=== PATIENT | male | born 1975 | race Caucasian/White ===

== ENCOUNTER 2018-06-05 15:09 | Emergency (ER) | payer OTHER, MEDICAID, SELFPAY ==
[2018-06-05 15:32] VITALS: BP 129/90; PULSE 101; RESP 17; TEMP 36.7; O2SAT 96; BMI 40.2
--- NOTE | 2018-06-05 16:00 | DI.RAD.S_ITS ---
PROCEDURE: XR CHEST 1V INDICATIONS: Dyspnea TECHNIQUE: One view of the chest was acquired. COMPARISON: None. FINDINGS: Surgical changes and devices: None. Lungs and pleura: Mild increased pulmonary vascularity. No pleural effusions or pneumothorax. Mediastinum: Mediastinal contours appear normal. Heart size is normal. Bones and chest wall: No suspicious bony lesions. Overlying soft tissues appear unremarkable. IMPRESSION: Mild increased pulmonary vascularity. Dictated by: Celina Alonso M.D. on 06/05/2018 at 16:37 Approved by: Celina Alonso M.D. on 06/05/2018 at 16:37
--- NOTE | 2018-06-05 16:01 | DI.CT.S_ITS ---
PROCEDURE: CT ANGIO CHEST PE PROTOCOL INDICATIONS: dyspnea TECHNIQUE: After the administration of intravenous contrast, 2 mm thick sections acquired from the pulmonary apices to the posterior costophrenic angles. 3-dimensional maximum intensity projection (MIP) coronal and sagittal reformats were then acquired through the thorax. For radiation dose reduction, the following was used: automated exposure control, adjustment of mA and/or kV according to patient size. COMPARISON: [facility], CR, XR CHEST 1V, 06/05/2018, 16:13. FINDINGS: Image quality: Excellent. Pulmonary arteries: Pulmonary arteries are normal in size, and demonstrate no intraluminal filling defects to suggest central pulmonary embolism. Lungs and pleura: Lungs are clear. No pleural effusions or pneumothorax. Central and peripheral airways are patent. Mediastinum: Heart size is normal, without pericardial effusion. No mediastinal or hilar adenopathy. Thoracic aorta is normal in caliber and enhancement. Esophagus is normal in caliber, with minimal hiatal hernia. Bones and chest wall: No suspicious bony lesions. Ribs and thoracic spine appear intact throughout. Thyroid gland is unremarkable. No axillary or supraclavicular adenopathy. Abdomen: Visualized upper abdominal solid organs appear normal in the early arterial phase of enhancement. IMPRESSION: 1. No pulmonary embolism. Lungs are clear. Dictated by: Celina Alonso M.D. on 06/05/2018 at 17:17 Approved by: Celina Alonso M.D. on 06/05/2018 at 17:19
[2018-06-05 16:26] LABS: Add Manual Diff / Slide Review NO; Basophils Absolute Auto 200 /uL (0-100); Basophils Percent Auto 1.7 % (0-2); Eosinophils Absolute Auto 200 /uL (0-450); Eosinophils Percent Auto 2.4 % (2-4); Hematocrit 42.3 % (41-53); Hemoglobin 14.4 g/dL (13.5-17.5); Lymphocytes Absolute Auto 1800 /uL (1100-4500); Lymphocytes Percent Auto 19.6 % (25-40); Mean Corpuscular Hemoglobin 29.8 PG (26-34); Mean Corpuscular Volume 87.6 fL (80-100); Monocytes Absolute Auto 600 /uL (0-900); Monocytes Percent Auto 5.9 % (3-14); Neutrophils Absolute Auto 6600 /uL (1500-7000); Neutrophils Percent Auto 70.4 % (50-75); Platelet Count 206 X10^3/uL (150-400); Red Blood Cell Count 4.83 X10^6/uL (4.5-5.9); Red Cell Distribution Width 14.5 % (11.6-14.8); White Blood Cell Count 9.4 X10^3/uL (4.5-11.0)
--- NOTE | 2018-06-05 16:32 | ED.SOB ---
HPI - SOB/Dyspnea <PHI Lucas - Last Filed: 06/05/18 21:36> General Chief Complaint: Shortness of Breath/Dyspnea Stated Complaint: trouble breathing Time Seen by Provider: 06/05/18 15:29 Source: patient Mode of arrival: ambulatory Limitations: no limitations History of Present Illness 42-year-old male with history of type 2 diabetes COPD and coronary artery disease here for complaint of having dyspnea over the past couple of days. He is an everyday smoker. He recently just moved to this area from [place]. He states that he has had difficulties with medical insurance and therefore has not been taking his medications as prescribed over the past couple of weeks. He is unsure what medications he has with him and which ones he has not been taking. He denies any chest pain at this time. He does report having a productive cough with a whitish mucus Sputum he denies any fevers. He does state that he has worsening shortness of breath with exertion. He denies having any flu-like symptoms or cold-like symptoms. He denies any swelling to his lower extremities. He does report the also has a history of having heart failure. MD Complaint: shortness of breath Related Data Previous Rx's Medication Instructions Recorded lisinopril 5 mg PO DAILY #14 tab 06/05/18 metolazone 2.5 mg PO DAILY #14 tab 06/05/18 pantoprazole [Protonix] 20 mg PO DAILY #14 tab 06/05/18 Allergies Allergy/AdvReac Type Severity Reaction Status Date / Time No Known Drug Allergies Allergy Verified 06/05/18 15:35 Review of Systems <PHI Lucas - Last Filed: 06/05/18 21:36> Constitutional Denies chills, Denies fever(s), Denies lethargy and Denies weakness Eyes Denies change in vision, Denies eye discharge, Denies irritation and Denies loss of vision ENT Ears, Nose, Mouth, and Throat: Denies change in voice, Denies neck pain, Denies sore throat and Denies throat swelling Cardiovascular Denies chest pain, Denies irregular heart rhythm, Denies lightheadedness, Denies palpitations, Reports dyspnea and Denies orthopnea Respiratory Reports dyspnea and Denies wheezing Gastrointestinal Gastrointestinal: Denies abdominal pain, Denies change in bowel habits, Denies diarrhea, Denies nausea and Denies vomiting Musculoskeletal Denies neck pain Neurologic Denies confusion, Denies loss of vision and Denies weakness Psychiatric Denies anxiety, Denies confusion, Denies depression, Denies homicidal ideation and Denies suicidal ideation Endocrine Denies palpitations Allergic/Immunologic Denies urticaria, Denies throat swelling and Denies wheezing PFSH <PHI Lucas - Last Filed: 06/05/18 21:36> Social History Smoking Status: Current every day smoker Social History Smoking Status: Current every day smoker Exam <PHI Lucas - Last Filed: 06/05/18 21:36> Initial Vital Signs Initial Vital Signs: Vital Signs Temperature 98.0 F 06/05/18 15:32 Pulse Rate 101 H 06/05/18 15:32 Respiratory Rate 17 06/05/18 15:32 Blood Pressure 129/90 06/05/18 15:32 Pulse Oximetry 96 06/05/18 15:32 Const General: cooperative and well developed Nutritional Appearance: well nourished Orientation: alert, awake, oriented x3 and not confused [facility] Mouth: oral mucosae normal and moist mucous membranes Eyes Conjunctivae: conjunctivae normal Sclera: sclerae normal Pupils: PERRL EOM: EOM intact bilaterally Resp Effort & Inspection: normal respiratory effort, able to speak in complete sentences, no respiratory distress and no use of accessory muscles Auscultation: clear to auscultation bilaterally, no rales, no rhonchi and no wheezes Cardio Rate: regular rate Rhythm: regular rhythm Heart Sounds: no click, no gallops, no murmurs and no rubs Pulses: normal peripheral pulses Skin General: no rashes or lesions noted, No jaundice and No petechiae Neuro General: alert, oriented x3, gait normal and no focal motor deficits Speech: speech normal Extrem General: full ROM, no clubbing, cyanosis or edema, no pedal edema and no calf tenderness <Cornelia Martin DO - Last Filed: 06/06/18 08:00> Initial Vital Signs Initial Vital Signs: Vital Signs Temperature 98.0 F 06/05/18 15:32 Pulse Rate 101 H 06/05/18 15:32 Respiratory Rate 17 06/05/18 15:32 Blood Pressure 129/90 06/05/18 15:32 Pulse Oximetry 96 06/05/18 15:32 Course <PHI Lucas - Last Filed: 06/05/18 21:36> Orders Ordered: Discontinued Medications Albuterol/Ipratropium (Duoneb) 3 ml INH NOW ONE Stop: 06/05/18 17:36 Last Admin: 06/05/18 18:12 Dose: Not Given Vital Signs - 8 hr 06/05/18 15:32 06/05/18 17:00 Temperature 98.0 F Pulse Rate 101 H 98 H Respiratory Rate 17 17 Blood Pressure 129/90 Blood Pressure [Right Arm] 101/44 L Pulse Oximetry 96 97 <Cornelia Martin DO - Last Filed: 06/06/18 08:00> Orders Ordered: Discontinued Medications Albuterol/Ipratropium (Duoneb) 3 ml INH NOW ONE Stop: 06/05/18 17:36 Last Admin: 06/05/18 18:12 Dose: Not Given Vital Signs - 8 hr 06/05/18 15:32 06/05/18 17:00 Temperature 98.0 F Pulse Rate 101 H 98 H Respiratory Rate 17 17 Blood Pressure 129/90 Blood Pressure [Right Arm] 101/44 L Pulse Oximetry 96 97 MDM - SOB/Dyspnea <PHI Lucas - Last Filed: 06/05/18 21:36> Lab Data Result diagrams: 06/05/18 16:15 06/05/18 16:15 Lab Results 06/05/18 06/05/18 06/05/18 Range/Units 16:15 16:15 16:15 WBC 9.4 (4.5-11.0) X10^3/uL RBC 4.83 (4.5-5.9) X10^6/uL Hgb 14.4 (13.5-17.5) g/dL Hct 42.3 (41-53) % MCV 87.6 (80-100) fL MCH 29.8 (26-34) PG MCHC 34.0 (30-36) % RDW 14.5 (11.6-14.8) % Plt Count 206 (150-400) X10^3/uL Neut % (Auto) 70.4 (50-75) % Lymph % (Auto) 19.6 L (25-40) % [place] % (Auto) 5.9 (3-14) % Eos % (Auto) 2.4 (2-4) % Baso % (Auto) 1.7 (0-2) % Neut # (Auto) 6600 (8242-9240) /uL Lymph # (Auto) 1800 (7258-3895) /uL [place] # (Auto) 600 (0-900) /uL Eos # (Auto) 200 (0-450) /uL Baso # (Auto) 200 H (0-100) /uL Sodium 134 L (137-145) mmol/L Potassium 4.1 (3.4-5.1) mmol/L Chloride 94 L (98-107) mmol/L Carbon Dioxide 26 (22-32) mmol/L BUN 28 H (9-20) mg/dL Creatinine 1.10 (0.66-1.25) mg/dL Estimated GFR > 60.0 (>60) mL/min BUN/Creatinine Ratio 25.5 H (6-22) Glucose 362 H (70-100) mg/dL Calcium 9.1 (8.4-10.2) mg/dL Total Bilirubin 0.5 (0.2-1.3) mg/dL AST 29 (17-59) IU/L ALT 43 (21-72) IU/L Alkaline Phosphatase 46 (38-126) U/L Total Creatine Kinase 155 (55-170) U/L CK-MB (CK-2) 2.96 H (<2.37) ng/mL CK-MB (CK-2) Rel Index 1.9 (1.5-5.0) % Troponin I 0.016 (0.01-0.034) ng/mL B-Natriuretic Peptide 304 H (<100) Total Protein 7.9 (6.3-8.2) g/dL Albumin 4.4 (3.5-5.0) g/dL Globulin 3.5 (1.7-4.1) g/dL Albumin/Globulin Ratio 1.3 (1.0-2.8) Lipase 150 (23-300) U/L Urine Dip Bedside Urine Glucose 1000 mg/dl Bedside Urine Bilirubin - Negative Bedside Urine Ketone - Negative Urine Specific [place] 1.015 Bedside Urine Occult Blood - Negative Bedside Urine pH 6.5 Bedside Urine Protein +/- 15 Bedside Urine Urobilinogen - Negative Bedside Urine Nitrite - Negative Bedside Urine Leukocytes - Negative Esterase Imaging Data CT scan - chest: Radiologist's impression: [address] [address] [address] Scan Report Signed Patient: Sid Stiles [facility]#: [id number] : 1975Acct:[id number] Age/Sex: 42 / MDate of Service: 06/05/18 Loc: ED Accession Number: [id number] Procedure: CT angio chest PE protocol Ordering Provider: Bereket Bowling PROCEDURE: CT ANGIO CHEST PE PROTOCOL INDICATIONS: dyspnea TECHNIQUE: After the administration of intravenous contrast, 2 mm thick sections acquired from the pulmonary apices to the posterior costophrenic angles. 3-dimensional maximum intensity projection (MIP) coronal and sagittal reformats were then acquired through the thorax. For radiation dose reduction, the following was used: automated exposure control, adjustment of mA and/or kV according to patient size. COMPARISON: [facility], , XR CHEST 1V, 06/05/2018, 16:13. FINDINGS: Image quality: Excellent. Pulmonary arteries: Pulmonary arteries are normal in size, and demonstrate no intraluminal filling defects to suggest central pulmonary embolism. Lungs and pleura: Lungs are clear. No pleural effusions or pneumothorax. Central and peripheral airways are patent. Mediastinum: Heart size is normal, without pericardial effusion. No mediastinal or hilar adenopathy. Thoracic aorta is normal in caliber and enhancement. Esophagus is normal in caliber, with minimal hiatal hernia. Bones and chest wall: No suspicious bony lesions. Ribs and thoracic spine appear intact throughout. Thyroid gland is unremarkable. No axillary or supraclavicular adenopathy. Abdomen: Visualized upper abdominal solid organs appear normal in the early arterial phase of enhancement. IMPRESSION: 1. No pulmonary embolism. Lungs are clear. Dictated by: Celina Alonso M.D. on 06/05/2018 at 17:17 Approved by: Celina Alonso M.D. on 06/05/2018 at 17:19 Chest x-ray: Radiologist's impression: [address] [address] XRay Report Signed Patient: Sid Stiles [facility]#: [id number] : 1975Acct:[id number] Age/Sex: 42 / MDate of Service: 06/05/18 Loc: ED Accession Number: [id number] Procedure: XR chest 1V Ordering Provider: Bereket Bowling PROCEDURE: XR CHEST 1V INDICATIONS: Dyspnea TECHNIQUE: One view of the chest was acquired. COMPARISON: None. FINDINGS: Surgical changes and devices: None. Lungs and pleura: Mild increased pulmonary vascularity. No pleural effusions or pneumothorax. Mediastinum: Mediastinal contours appear normal. Heart size is normal. Bones and chest wall: No suspicious bony lesions. Overlying soft tissues appear unremarkable. IMPRESSION: Mild increased pulmonary vascularity. Dictated by: Celina Alonso M.D. on 06/05/2018 at 16:37 Approved by: Celina Alonso M.D. on 06/05/2018 at 16:37 ECG Data Interpretation: chest x-ray shows sinus rhythm no ST elevation or depression. No ectopy. Ventricular rhythm of 95. Pr interval of 140. QRS duration of 113. QTC of 408. MDM Narrative Medical decision making narrative: CT of chest was obtained was negative for any PE. Chest x-ray was obtained and was negative for any acute findings. EKG shows sinus rhythm no ST elevation or depression. No ectopy. CBC was obtained was unremarkable. Chem panel shows glucose elevated at 362. Patient states he discussed through eating prior to arrival. BNP was mildly elevated at 304. Will have patient continue taking his Lasix as prescribed. Potassium was at 4.1. Patient's vital signs were unremarkable in the emergency room. Differential of his shortness of breath is anxiet, COPD or viral illness. after relaxing his shortness of breath improved did not feel like he was short of breath anymore. Had discussion with patient as far as follow-up with primary care provider and further evaluation as may be stress test may be beneficial. He has follow-up appointment set up in the next couple days with new primary care provider. refills for 2 weeks of his lisinopril metolazone and Protonix are provided as he is out at this time. <Cornelia Martin, DO - Last Filed: 06/06/18 08:00> Lab Data Lab Results 06/05/18 06/05/18 06/05/18 Range/Units 16:15 16:15 16:15 WBC 9.4 (4.5-11.0) X10^3/uL RBC 4.83 (4.5-5.9) X10^6/uL Hgb 14.4 (13.5-17.5) g/dL Hct 42.3 (41-53) % MCV 87.6 (80-100) fL MCH 29.8 (26-34) PG MCHC 34.0 (30-36) % RDW 14.5 (11.6-14.8) % Plt Count 206 (150-400) X10^3/uL Neut % (Auto) 70.4 (50-75) % Lymph % (Auto) 19.6 L (25-40) % [place] % (Auto) 5.9 (3-14) % Eos % (Auto) 2.4 (2-4) % Baso % (Auto) 1.7 (0-2) % Neut # (Auto) 6600 (4669-2331) /uL Lymph # (Auto) 1800 (0337-8511) /uL [place] # (Auto) 600 (0-900) /uL Eos # (Auto) 200 (0-450) /uL Baso # (Auto) 200 H (0-100) /uL Sodium 134 L (137-145) mmol/L Potassium 4.1 (3.4-5.1) mmol/L Chloride 94 L (98-107) mmol/L Carbon Dioxide 26 (22-32) mmol/L BUN 28 H (9-20) mg/dL Creatinine 1.10 (0.66-1.25) mg/dL Estimated GFR > 60.0 (>60) mL/min BUN/Creatinine Ratio 25.5 H (6-22) Glucose 362 H (70-100) mg/dL Calcium 9.1 (8.4-10.2) mg/dL Total Bilirubin 0.5 (0.2-1.3) mg/dL AST 29 (17-59) IU/L ALT 43 (21-72) IU/L Alkaline Phosphatase 46 (38-126) U/L Total Creatine Kinase 155 (55-170) U/L CK-MB (CK-2) 2.96 H (<2.37) ng/mL CK-MB (CK-2) Rel Index 1.9 (1.5-5.0) % Troponin I 0.016 (0.01-0.034) ng/mL B-Natriuretic Peptide 304 H (<100) Total Protein 7.9 (6.3-8.2) g/dL Albumin 4.4 (3.5-5.0) g/dL Globulin 3.5 (1.7-4.1) g/dL Albumin/Globulin Ratio 1.3 (1.0-2.8) Lipase 150 (23-300) U/L Urine Dip Bedside Urine Glucose 1000 mg/dl Bedside Urine Bilirubin - Negative Bedside Urine Ketone - Negative Urine Specific [place] 1.015 Bedside Urine Occult Blood - Negative Bedside Urine pH 6.5 Bedside Urine Protein +/- 15 Bedside Urine Urobilinogen - Negative Bedside Urine Nitrite - Negative Bedside Urine Leukocytes - Negative Esterase ECG Data Attestation: I personally reviewed and interpreted this ECG as follows: Prior ECG tracings: not available for review Interpretation: Normal sinus rhythm rate 95 low voltage Q-waves noted in precordial leads, no T-wave inversions Discharge Plan Departure Patient Disposition: Home Clinical Impression: Mild shortness of breath Discharge Date/Time: 06/05/18 18:35 Interventions: ED Discharge Assessment Last Done: 06/05/18 18:34 Instructions: DI for Shortness of Breath Activity Restrictions/Additional Instructions: cardiac enzymes a were obtained today and were negative. BNP was mildly elevated and chest x-ray and CT of the chest were unremarkable indicating no exacerbation of COPD at this timeframe. Differential of causes for shortness of breath may be viral illness or anxiety. follow up with her primary care provider the next couple days as scheduled. Refills of lisinopril, metolazone and Protonix are provided for the next couple weeks. for any worsening symptoms return to the emergency room. Prescriptions: New metolazone 2.5 mg tablet 2.5 mg PO DAILY Qty: 14 RF: 0 lisinopril 5 mg tablet 5 mg PO DAILY Qty: 14 RF: 0 pantoprazole [Protonix] 20 mg tablet,delayed release (DR/EC) 20 mg PO DAILY Qty: 14 RF: 0 Referrals: [facility] [Provider Group] <Cornelia Martin DO - Last Filed: 06/06/18 08:00> Cosign ED Attending Filomena Attestation: I was immediately available in the department for consultation. Documentation has been reviewed. I agree with assessment and plan.
[2018-06-05 16:34] LABS: Alanine Aminotransferase 43 IU/L (21-72); Albumin 4.4 g/dL (3.5-5.0); Albumin Globulin Ratio 1.3 (1.0-2.8); Alkaline Phosphatase 46 U/L (38-126); Aspartate Aminotransferase 29 IU/L (17-59); BUN Creatinine Ratio 25.5 (6-22); Bilirubin Total 0.5 mg/dL (0.2-1.3); Blood Urea Nitrogen 28 mg/dL (9-20); Calcium 9.1 mg/dL (8.4-10.2); Carbon Dioxide 26 mmol/L (22-32); Chloride 94 mmol/L (98-107); Creatine Kinase 155 U/L (55-170); Estimated Glomerular Filt Rate > 60.0 mL/min (>60); Globulin 3.5 g/dL (1.7-4.1); Glucose 362 mg/dL (70-100); HEMOLYSIS 24 (0-50); Lipase 150 U/L (23-300); Potassium 4.1 mmol/L (3.4-5.1); Sodium 134 mmol/L (137-145); Total Protein 7.9 g/dL (6.3-8.2)
--- NOTE | 2018-06-05 16:36 | ED_ITS ---
HPI - SOB/Dyspnea <PHI Lucas - Last Filed: 06/05/18 21:36> General Chief Complaint: Shortness of Breath/Dyspnea Stated Complaint: trouble breathing Time Seen by Provider: 06/05/18 15:29 Source: patient Mode of arrival: ambulatory Limitations: no limitations History of Present Illness 42-year-old male with history of type 2 diabetes COPD and coronary artery disease here for complaint of having dyspnea over the past couple of days. He is an everyday smoker. He recently just moved to this area from [place]. He states that he has had difficulties with medical insurance and therefore has not been taking his medications as prescribed over the past couple of weeks. He is unsure what medications he has with him and which ones he has not been taking. He denies any chest pain at this time. He does report having a productive cough with a whitish mucus Sputum he denies any fevers. He does state that he has worsening shortness of breath with exertion. He denies having any flu-like symptoms or cold-like symptoms. He denies any swelling to his lower extremities. He does report the also has a history of having heart failure. MD Complaint: shortness of breath Related Data Previous Rx's Medication Instructions Recorded lisinopril 5 mg PO DAILY #14 tab 06/05/18 metolazone 2.5 mg PO DAILY #14 tab 06/05/18 pantoprazole [Protonix] 20 mg PO DAILY #14 tab 06/05/18 Allergies Allergy/AdvReac Type Severity Reaction Status Date / Time No Known Drug Allergies Allergy Verified 06/05/18 15:35 Review of Systems <PHI Lucas - Last Filed: 06/05/18 21:36> Constitutional Denies chills, Denies fever(s), Denies lethargy and Denies weakness Eyes Denies change in vision, Denies eye discharge, Denies irritation and Denies loss of vision ENT Ears, Nose, Mouth, and Throat: Denies change in voice, Denies neck pain, Denies sore throat and Denies throat swelling Cardiovascular Denies chest pain, Denies irregular heart rhythm, Denies lightheadedness, Denies palpitations, Reports dyspnea and Denies orthopnea Respiratory Reports dyspnea and Denies wheezing Gastrointestinal Gastrointestinal: Denies abdominal pain, Denies change in bowel habits, Denies diarrhea, Denies nausea and Denies vomiting Musculoskeletal Denies neck pain Neurologic Denies confusion, Denies loss of vision and Denies weakness Psychiatric Denies anxiety, Denies confusion, Denies depression, Denies homicidal ideation and Denies suicidal ideation Endocrine Denies palpitations Allergic/Immunologic Denies urticaria, Denies throat swelling and Denies wheezing PFSH <PHI Lucas - Last Filed: 06/05/18 21:36> Social History Smoking Status: Current every day smoker Social History Smoking Status: Current every day smoker Exam <PHI Lucas - Last Filed: 06/05/18 21:36> Initial Vital Signs Initial Vital Signs: Vital Signs Temperature 98.0 F 06/05/18 15:32 Pulse Rate 101 H 06/05/18 15:32 Respiratory Rate 17 06/05/18 15:32 Blood Pressure 129/90 06/05/18 15:32 Pulse Oximetry 96 06/05/18 15:32 Const General: cooperative and well developed Nutritional Appearance: well nourished Orientation: alert, awake, oriented x3 and not confused [facility] Mouth: oral mucosae normal and moist mucous membranes Eyes Conjunctivae: conjunctivae normal Sclera: sclerae normal Pupils: PERRL EOM: EOM intact bilaterally Resp Effort & Inspection: normal respiratory effort, able to speak in complete sentences, no respiratory distress and no use of accessory muscles Auscultation: clear to auscultation bilaterally, no rales, no rhonchi and no wheezes Cardio Rate: regular rate Rhythm: regular rhythm Heart Sounds: no click, no gallops, no murmurs and no rubs Pulses: normal peripheral pulses Skin General: no rashes or lesions noted, No jaundice and No petechiae Neuro General: alert, oriented x3, gait normal and no focal motor deficits Speech: speech normal Extrem General: full ROM, no clubbing, cyanosis or edema, no pedal edema and no calf tenderness <Cornelia Martin DO - Last Filed: 06/06/18 08:00> Initial Vital Signs Initial Vital Signs: Vital Signs Temperature 98.0 F 06/05/18 15:32 Pulse Rate 101 H 06/05/18 15:32 Respiratory Rate 17 06/05/18 15:32 Blood Pressure 129/90 06/05/18 15:32 Pulse Oximetry 96 06/05/18 15:32 Course <PHI Lucas - Last Filed: 06/05/18 21:36> Orders Ordered: Discontinued Medications Albuterol/Ipratropium (Duoneb) 3 ml INH NOW ONE Stop: 06/05/18 17:36 Last Admin: 06/05/18 18:12 Dose: Not Given Vital Signs - 8 hr 06/05/18 15:32 06/05/18 17:00 Temperature 98.0 F Pulse Rate 101 H 98 H Respiratory Rate 17 17 Blood Pressure 129/90 Blood Pressure [Right Arm] 101/44 L Pulse Oximetry 96 97 <Cornelia Martin DO - Last Filed: 06/06/18 08:00> Orders Ordered: Discontinued Medications Albuterol/Ipratropium (Duoneb) 3 ml INH NOW ONE Stop: 06/05/18 17:36 Last Admin: 06/05/18 18:12 Dose: Not Given Vital Signs - 8 hr 06/05/18 15:32 06/05/18 17:00 Temperature 98.0 F Pulse Rate 101 H 98 H Respiratory Rate 17 17 Blood Pressure 129/90 Blood Pressure [Right Arm] 101/44 L Pulse Oximetry 96 97 MDM - SOB/Dyspnea <PHI Lucas - Last Filed: 06/05/18 21:36> Lab Data Result diagrams: 06/05/18 16:15 06/05/18 16:15 Lab Results 06/05/18 06/05/18 06/05/18 Range/Units 16:15 16:15 16:15 WBC 9.4 (4.5-11.0) X10^3/uL RBC 4.83 (4.5-5.9) X10^6/uL Hgb 14.4 (13.5-17.5) g/dL Hct 42.3 (41-53) % MCV 87.6 (80-100) fL MCH 29.8 (26-34) PG MCHC 34.0 (30-36) % RDW 14.5 (11.6-14.8) % Plt Count 206 (150-400) X10^3/uL Neut % (Auto) 70.4 (50-75) % Lymph % (Auto) 19.6 L (25-40) % Barnes % (Auto) 5.9 (3-14) % Eos % (Auto) 2.4 (2-4) % Baso % (Auto) 1.7 (0-2) % Neut # (Auto) 6600 (8457-9016) /uL Lymph # (Auto) 1800 (7097-9156) /uL Barnes # (Auto) 600 (0-900) /uL Eos # (Auto) 200 (0-450) /uL Baso # (Auto) 200 H (0-100) /uL Sodium 134 L (137-145) mmol/L Potassium 4.1 (3.4-5.1) mmol/L Chloride 94 L (98-107) mmol/L Carbon Dioxide 26 (22-32) mmol/L BUN 28 H (9-20) mg/dL Creatinine 1.10 (0.66-1.25) mg/dL Estimated GFR > 60.0 (>60) mL/min BUN/Creatinine Ratio 25.5 H (6-22) Glucose 362 H (70-100) mg/dL Calcium 9.1 (8.4-10.2) mg/dL Total Bilirubin 0.5 (0.2-1.3) mg/dL AST 29 (17-59) IU/L ALT 43 (21-72) IU/L Alkaline Phosphatase 46 (38-126) U/L Total Creatine Kinase 155 (55-170) U/L CK-MB (CK-2) 2.96 H (<2.37) ng/mL CK-MB (CK-2) Rel Index 1.9 (1.5-5.0) % Troponin I 0.016 (0.01-0.034) ng/mL B-Natriuretic Peptide 304 H (<100) Total Protein 7.9 (6.3-8.2) g/dL Albumin 4.4 (3.5-5.0) g/dL Globulin 3.5 (1.7-4.1) g/dL Albumin/Globulin Ratio 1.3 (1.0-2.8) Lipase 150 (23-300) U/L Urine Dip Bedside Urine Glucose 1000 mg/dl Bedside Urine Bilirubin - Negative Bedside Urine Ketone - Negative Urine Specific [place] 1.015 Bedside Urine Occult Blood - Negative Bedside Urine pH 6.5 Bedside Urine Protein +/- 15 Bedside Urine Urobilinogen - Negative Bedside Urine Nitrite - Negative Bedside Urine Leukocytes - Negative Esterase Imaging Data CT scan - chest: Radiologist's impression: [address] [address] [address] Scan Report Signed Patient: Sid Stiles [facility]#: [id number] : 1975Acct:[id number] Age/Sex: 42 / MDate of Service: 06/05/18 Loc: ED Accession Number: [id number] Procedure: CT angio chest PE protocol Ordering Provider: Bereket Bowling PROCEDURE: CT ANGIO CHEST PE PROTOCOL INDICATIONS: dyspnea TECHNIQUE: After the administration of intravenous contrast, 2 mm thick sections acquired from the pulmonary apices to the posterior costophrenic angles. 3-dimensional maximum intensity projection (MIP) coronal and sagittal reformats were then acquired through the thorax. For radiation dose reduction, the following was used: automated exposure control, adjustment of mA and/or kV according to patient size. COMPARISON: [facility], , XR CHEST 1V, 06/05/2018, 16:13. FINDINGS: Image quality: Excellent. Pulmonary arteries: Pulmonary arteries are normal in size, and demonstrate no intraluminal filling defects to suggest central pulmonary embolism. Lungs and pleura: Lungs are clear. No pleural effusions or pneumothorax. Central and peripheral airways are patent. Mediastinum: Heart size is normal, without pericardial effusion. No mediastinal or hilar adenopathy. Thoracic aorta is normal in caliber and enhancement. Esophagus is normal in caliber, with minimal hiatal hernia. Bones and chest wall: No suspicious bony lesions. Ribs and thoracic spine appear intact throughout. Thyroid gland is unremarkable. No axillary or supraclavicular adenopathy. Abdomen: Visualized upper abdominal solid organs appear normal in the early arterial phase of enhancement. IMPRESSION: 1. No pulmonary embolism. Lungs are clear. Dictated by: Celina Alonso M.D. on 06/05/2018 at 17:17 Approved by: Celina Alonso M.D. on 06/05/2018 at 17:19 Chest x-ray: Radiologist's impression: [address] [address] XRay Report Signed Patient: Sid Stiles [facility]#: [id number] : 1975Acct:[id number] Age/Sex: 42 / MDate of Service: 06/05/18 Loc: ED Accession Number: [id number] Procedure: XR chest 1V Ordering Provider: Bereket Bowling PROCEDURE: XR CHEST 1V INDICATIONS: Dyspnea TECHNIQUE: One view of the chest was acquired. COMPARISON: None. FINDINGS: Surgical changes and devices: None. Lungs and pleura: Mild increased pulmonary vascularity. No pleural effusions or pneumothorax. Mediastinum: Mediastinal contours appear normal. Heart size is normal. Bones and chest wall: No suspicious bony lesions. Overlying soft tissues appear unremarkable. IMPRESSION: Mild increased pulmonary vascularity. Dictated by: Celina Alonso M.D. on 06/05/2018 at 16:37 Approved by: Celina Alonso M.D. on 06/05/2018 at 16:37 ECG Data Interpretation: chest x-ray shows sinus rhythm no ST elevation or depression. No ectopy. Ventricular rhythm of 95. Pr interval of 140. QRS duration of 113. QTC of 408. MDM Narrative Medical decision making narrative: CT of chest was obtained was negative for any PE. Chest x-ray was obtained and was negative for any acute findings. EKG shows sinus rhythm no ST elevation or depression. No ectopy. CBC was obtained was unremarkable. Chem panel shows glucose elevated at 362. Patient states he discussed through eating prior to arrival. BNP was mildly elevated at 304. Will have patient continue taking his Lasix as prescribed. Potassium was at 4.1. Patient's vital signs were unremarkable in the emergency room. D ifferential of his shortness of breath is anxiet, COPD or viral illness. after relaxing his shortness of breath improved did not feel like he was short of breath anymore. Had discussion with patient as far as follow-up with primary care provider and further evaluation as may be stress test may be beneficial. He has follow-up appointment set up in the next couple days with new primary care provider. refills for 2 weeks of his lisinopril metolazone and Protonix are provided as he is out at this time. <Cornelia Martin, - Last Filed: 06/06/18 08:00> Lab Data Lab Results 06/05/18 06/05/18 06/05/18 Range/Units 16:15 16:15 16:15 WBC 9.4 (4.5-11.0) X10^3/uL RBC 4.83 (4.5-5.9) X10^6/uL Hgb 14.4 (13.5-17.5) g/dL Hct 42.3 (41-53) % MCV 87.6 (80-100) fL MCH 29.8 (26-34) PG MCHC 34.0 (30-36) % RDW 14.5 (11.6-14.8) % Plt Count 206 (150-400) X10^3/uL Neut % (Auto) 70.4 (50-75) % Lymph % (Auto) 19.6 L (25-40) % Barnes % (Auto) 5.9 (3-14) % Eos % (Auto) 2.4 (2-4) % Baso % (Auto) 1.7 (0-2) % Neut # (Auto) 6600 (2546-9298) /uL Lymph # (Auto) 1800 (2765-8621) /uL Barnes # (Auto) 600 (0-900) /uL Eos # (Auto) 200 (0-450) /uL Baso # (Auto) 200 H (0-100) /uL Sodium 134 L (137-145) mmol/L Potassium 4.1 (3.4-5.1) mmol/L Chloride 94 L (98-107) mmol/L Carbon Dioxide 26 (22-32) mmol/L BUN 28 H (9-20) mg/dL Creatinine 1.10 (0.66-1.25) mg/dL Estimated GFR > 60.0 (>60) mL/min BUN/Creatinine Ratio 25.5 H (6-22) Glucose 362 H (70-100) mg/dL Calcium 9.1 (8.4-10.2) mg/dL Total Bilirubin 0.5 (0.2-1.3) mg/dL AST 29 (17-59) IU/L ALT 43 (21-72) IU/L Alkaline Phosphatase 46 (38-126) U/L Total Creatine Kinase 155 (55-170) U/L CK-MB (CK-2) 2.96 H (<2.37) ng/mL CK-MB (CK-2) Rel Index 1.9 (1.5-5.0) % Troponin I 0.016 (0.01-0.034) ng/mL B-Natriuretic Peptide 304 H (<100) Total Protein 7.9 (6.3-8.2) g/dL Albumin 4.4 (3.5-5.0) g/dL Globulin 3.5 (1.7-4.1) g/dL Albumin/Globulin Ratio 1.3 (1.0-2.8) Lipase 150 (23-300) U/L Urine Dip Bedside Urine Glucose 1000 mg/dl Bedside Urine Bilirubin - Negative Bedside Urine Ketone - Negative Urine Specific [place] 1.015 Bedside Urine Occult Blood - Negative Bedside Urine pH 6.5 Bedside Urine Protein +/- 15 Bedside Urine Urobilinogen - Negative Bedside Urine Nitrite - Negative Bedside Urine Leukocytes - Negative Esterase ECG Data Attestation: I personally reviewed and interpreted this ECG as follows: Prior ECG tracings: not available for review Interpretation: Normal sinus rhythm rate 95 low voltage Q-waves noted in precordial leads, no T-wave inversions Discharge Plan Departure Patient Disposition: Home Clinical Impression: Mild shortness of breath Discharge Date/Time: 06/05/18 18:35 Interventions: ED Discharge Assessment Last Done: 06/05/18 18:34 Instructions: DI for Shortness of Breath Activity Restrictions/Additional Instructions: cardiac enzymes a were obtained today and were negative. BNP was mildly elevated and chest x-ray and CT of the chest were unremarkable indicating no exacerbation of COPD at this timeframe. Differential of causes for shortness of breath may be viral illness or anxiety. follow up with her primary care provider the next couple days as scheduled. Refills of lisinopril, metolazone and Protonix are provided for the next couple weeks. for any worsening symptoms return to the emergency room. Prescriptions: New metolazone 2.5 mg tablet 2.5 mg PO DAILY Qty: 14 RF: 0 lisinopril 5 mg tablet 5 mg PO DAILY Qty: 14 RF: 0 pantoprazole [Protonix] 20 mg tablet,delayed release (DR/EC) 20 mg PO DAILY Qty: 14 RF: 0 Referrals: [facility] [Provider Group] <Cornelia Martin DO - Last Filed: 06/06/18 08:00> Cosign ED Attending Filomena Attestation: I was immediately available in the department for consultation. Documentation has been reviewed. I agree with assessment and plan.
[2018-06-05 16:46] LABS: B Type Natriuretic Peptide 304 (<100); Troponin I 0.016 ng/mL (0.01-0.034)
[2018-06-05 16:50] LABS: CKMB % Relative Index 1.9 % (1.5-5.0); Creatine Kinase MB 2.96 ng/mL (<2.37)
[2018-06-05 17:00] VITALS: BP 101/44; PULSE 98; RESP 17; O2SAT 97
== END 2018-06-05 18:35 | disposition home or self-care (01) ==
PROVIDERS: Emergency Provider Nurse Practitioner Family
DX: R06.02 Shortness of breath (principal)
CPT/HCPCS: 36591; 71045; 71275; 80053; 81003; 82550; 82553; 83690; 83880; 84484; 85025; 93005; 93010; 99282; 99285; Q9967

== ENCOUNTER → 2018-06-16 09:59 | Outpatient (CLI) | payer OTHER, MEDICAID, SELFPAY ==
[2018-06-16 11:33] LABS: Hemoglobin A1C% w Est Avg Glu 8.5 % (4.0-6.0)
[2018-06-16 11:35] LABS: Alanine Aminotransferase 46 IU/L (21-72); Albumin 4.5 g/dL (3.5-5.0); Albumin Globulin Ratio 1.4 (1.0-2.8); Alkaline Phosphatase 39 U/L (38-126); Aspartate Aminotransferase 27 IU/L (17-59); BUN Creatinine Ratio 24.5 (6-22); Bilirubin Total 0.4 mg/dL (0.2-1.3); Blood Urea Nitrogen 27 mg/dL (9-20); Calcium 9.2 mg/dL (8.4-10.2); Carbon Dioxide 32 mmol/L (22-32); Chloride 95 mmol/L (98-107); Cholesterol 166 mg/dL (140-199); Estimated Glomerular Filt Rate > 60.0 mL/min (>60); Globulin 3.3 g/dL (1.7-4.1); Glucose 173 mg/dL (70-100); HDL Cholesterol 31 mg/dL (40-60); HEMOLYSIS < 15 (0-50); LDL Cholesterol Calculated 89 mg/dL (<100); Potassium 3.8 mmol/L (3.4-5.1); Sodium 137 mmol/L (137-145); Total Protein 7.8 g/dL (6.3-8.2); Triglycerides 228 mg/dL (35-150)
== END ==
PROVIDERS: Visit Provider Internal Medicine
DX: E11.621 Type 2 diabetes mellitus with foot ulcer (principal)
CPT/HCPCS: 36415; 80053; 80061; 83036

== ENCOUNTER → 2018-07-04 08:08 | Outpatient (CLI) | payer OTHER, MEDICAID, SELFPAY ==
--- NOTE | 2018-07-04 | DI.ECHO.S_ITS ---
[facility] +---------+ [facility] +---------+ : : [address] [place] : : : : [id number] : : : : Phone: [phone] Echocardiogram Report + + :Name: DENVER ROLDAN Study Date: 07/04/2018 Height: 70 in : :[facility] Weight: 272 lb: : Gender: Male BSA: 2.4 m2 : :: 1975 Age: 42 yrs : :Reason For Study: CAD : :Ordering Physician: Shelton Smith : :[place] Performed By: Carol Crandall : :Referring: MIGUELINA MCGILL : + + Interpretation Summary Technically difficult study. Moderate-severely dilated left ventricle with ejection fraction 25-30%. The anterior wall, apical 1/2 of septum, apex, apical 1/2 of lateral wall and apical 1/3 of inferior wall are akinetic. Diastolic parameters suggest a restrictive filling pattern consistent with probable significantly elevated filling pressures. Moderately dilated left atrium. The aortic valve is mildly calcified. Mild to moderate aortic regurgitation. Mild tricuspid regurgitation. The right ventricular systolic pressure is estimated to be at least 37 mmHg based on an estimated right atrial pressure of 3 mm Hg. Procedure: A two-dimensional transthoracic echocardiogram with color flow and Doppler was performed. The study quality was technically difficult. A contrast injection of Definity was performed to improve assessment of LV function. The patient was in normal sinus rhythm during the exam. Left Ventricle: The left ventricle is moderate-severely dilated. There is normal left ventricular wall thickness. The ejection fraction is estimated to be 25-30%. There is apical septal wall akinesis. There is apical akinesis. There is apical inferior wall akinesis. There is anterior wall akinesis. Diastolic parameters suggest a restrictive filling pattern consistent with probable significantly elevated filling pressures. Right Ventricle: The right ventricle is normal in size and function. Atria: The left atrium is moderately dilated. Right atrial size is normal. Mitral Valve: The mitral valve is normal in structure and function. There is no mitral regurgitation noted. Aortic Valve: The aortic valve is mildly calcified. Leaflet mobility is mildly reduced. There is mild to moderate aortic regurgitation. Tricuspid Valve: The tricuspid valve is normal in structure and function. There is mild tricuspid regurgitation. The right ventricular systolic pressure is estimated to be at least 37 mmHg based on an estimated right atrial pressure of 3 mm Hg. Pulmonic Valve: The pulmonic valve is not well visualized. Great Vessels: The aortic root is normal size. The ascending aorta is normal in size. The aortic arch is normal in size. The IVC is of normal diameter and collapses greater than 50% with a sniff. This suggests a low right atrial pressure of 3 mm Hg. MMode/2D Measurements & Calculations LVIDd: 6.8 cm LVOT diam: 2.3 cm LVIDs: 5.6 cm Ao root diam: 3.1 cm FS: 16.6 % Aortic Jxn: 2.5 cm EPSS: 2.2 cm asc Aorta Diam: 3.2 cm IVSd: 0.86 cm Ao Arch Diam (Prox Trans): 2.6 cm LVPWd: 0.81 cm LV hammond. diameter/BSA (cm/m^2): 2.8 LV sys. diameter/BSA (cm/m^2): 2.4 LA dimension: 4.6 cm RA long axis: 5.0 cm LA A2 area: 26.1 cm2 RA area: 20.6 cm2 LA A4 area: 23.7 cm2 RA vol: 72.1 ml LA length (vol): 5.4 cm RA : 30.3 ml/m2 LA vol: 97.1 ml IVC diam: 1.6 cm LA vol index: 40.8 ml/m2 RVDd major: 6.7 cm RVD1 (basal): 3.6 cm RVD2 (mid): 3.5 cm Doppler Measurements & Calculations Ao V2 max: 153.1 cm/sec AI P1/2t: 256.8 msec Ao V2 mean: 105.0 cm/sec AI dec slope: 438.6 cm/sec2 Ao max P.4 mmHg Ao mean P.2 mmHg Ao V2 VTI: 31.4 cm MV E max kavon: 136.4 cm/sec TR max kavon: 292.0 cm/sec MV A max kavon: 27.0 cm/sec TR max P.1 mmHg MV E/A: 5.0 PA V2 max: 60.5 cm/sec Med Peak E' Kavon: 1.7 cm/sec PA V2 mean: 41.7 cm/sec E/E' med: 81.0 PA mean P.80 mmHg Lat Peak E' Kavon: 5.0 cm/sec PA Accel Time: 0.15 sec E/E' lat: 27.4 E/e' average: 54.2 MV dec time: 0.09 sec MV P1/2t: 28.8 msec MV P1/2t max kavon: 136.4 cm/sec MVA(P1/2t): 7.6 cm2 Electronically signed by: Felix Zapata on Reading Physician:07/04/2018 11:56 AM
== END ==
PROVIDERS: PCP Internal Medicine; Referring Provider Internal Medicine Cardiovascular Disease; Visit Provider Internal Medicine
DX: I08.2 Rheumatic disorders of both aortic and tricuspid valves (principal); I25.10 Atherosclerotic heart disease of native coronary artery without angina pectoris; I50.20 Unspecified systolic (congestive) heart failure
CPT/HCPCS: 93306; Q9957

== ENCOUNTER 2018-07-16 09:24 | Emergency (ER) | payer OTHER, MEDICAID, SELFPAY ==
[2018-07-16 09:36] VITALS: BP 114/68; PULSE 87; RESP 22; TEMP 36.8; O2SAT 100; BMI 39.8
--- NOTE | 2018-07-16 09:50 | DI.RAD.S_ITS ---
PROCEDURE: XR CHEST 1V INDICATIONS: sob, hx of cardiomyopathy TECHNIQUE: One view of the chest was acquired. COMPARISON: [facility], CR, XR CHEST 1V, 06/05/2018, 16:13. FINDINGS: Surgical changes and devices: None. Lungs and pleura: No acute consolidation. Scattered subsegmental atelectasis and/or scarring. No pleural effusions or pneumothorax. Mediastinum: Mediastinal contours appear normal. Heart size is normal. Bones and chest wall: No suspicious bony lesions. Overlying soft tissues appear unremarkable. IMPRESSION: No acute consolidation. Scattered subsegmental atelectasis and/or scarring Dictated by: Carlos Lang M.D. on 07/16/2018 at 10:54 Approved by: Carlos Lang M.D. on 07/16/2018 at 10:55
[2018-07-16 09:55] LABS: HEMOLYSIS < 15 (0-50)
[2018-07-16 09:56] LABS: INR 1.1 (0.9-1.3); Prothrombin Time 12.2 SECONDS (10.1-12.7)
[2018-07-16 09:58] LABS: PTT Partial Thromboplastin Tim 33 SECONDS (26.4-36.2)
--- NOTE | 2018-07-16 10:00 | ED.SOB ---
HPI - SOB/Dyspnea General Chief Complaint: Shortness of Breath/Dyspnea Stated Complaint: sob, heart failure Time Seen by Provider: 07/16/18 09:32 Source: patient and old records reviewed Mode of arrival: ambulatory Limitations: no limitations History of Present Illness This is a 42-year-old male comes to the emergency department with complaint of shortness of breath. Patient states he has been increasingly short of breath over the last 2 days. He was hoping that would resolve. Patient has had cough, he had coughed up some phlegm. He states lying flat makes him very short of breath and difficult for him to get air. He states he has not noticed any swelling in his extremities but he typically does not have any. Patient has known cardiomyopathy, he has a history coronary artery disease, his stent occluded he had [place], stroke and most recent echo shows an EF 25-30% with dilated left ventricle and anterior wall, apical half of the septum, apex, apical 1/2 lateral wall and apical 1/3 of inferior wall akinetic. Patient states he saw Dr. Galeano with Cardiology and he is scheduled to have an AICD placed at the end of the month. He states that he has not had any recent food changes read anything that he should be eating, Dr. galloway his primary did stop his mental as own and potassium about 1-2 weeks ago because electrolytes abnormalities and dehydration. He has felt congested in his chest, he has had 30 yellow productive sputum. He denies any fevers. States he does sometimes have some left shoulder discomfort in the deltoid region, he states that he tends to notice it when he is walking. 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 He quit smoking 2 months ago, he does not use any alcohol or illicit drugs including cocaine but states that he used them pretty extensively in the past which likely was a major factor in developing his cardiac disease. Related Data Previous Rx's Medication Instructions Recorded lisinopril 5 mg PO DAILY #14 tab 06/05/18 metolazone 2.5 mg PO DAILY #14 tab 06/05/18 pantoprazole [Protonix] 20 mg PO DAILY #14 tab 06/05/18 furosemide [Lasix] See Rx Instructions .ROUTE 07/16/18 .COMPLEX #10 tab Allergies Allergy/AdvReac Type Severity Reaction Status Date / Time No Known Drug Allergies Allergy Verified 06/05/18 15:35 Review of Systems Review of Systems ROS Unobtainable: All systems reviewed & are unremarkable except as noted in HPI and below Constitutional Reports chills (maybe perpatient), Denies fever(s), Denies lethargy and Denies weakness ENT Ears, Nose, Mouth, and Throat: Denies nasal congestion Cardiovascular Denies chest pain, Denies chest pain at rest, Denies diaphoresis, Denies syncope, Denies edema, Denies irregular heart rhythm, Denies lightheadedness, Reports radiating jaw, neck or arm pain (left deltoid), Denies palpitations, Reports dyspnea on exertion and Reports orthopnea Respiratory Reports change in phlegm color, Reports chest congestion, Reports cough, Denies excessive phlegm production, Reports dyspnea on exertion, Denies stridor and Denies wheezing Gastrointestinal Gastrointestinal: Denies abdominal pain, Denies change in bowel habits, Denies constipation, Denies diarrhea, Denies nausea and Denies vomiting Genitourinary Denies hematuria, Denies urinary frequency and Denies urinary urgency Integumentary/Breasts Denies rash Neurologic Denies syncope and Denies weakness Endocrine Denies palpitations Allergic/Immunologic Denies wheezing [facility] Medical History (Updated 07/16/18 @ 11:59 by Valerie Jay DO) COPD (chronic obstructive pulmonary disease) (Acute) CVA (cerebral vascular accident) (Acute) Congestive heart failure (CHF) (Acute) Coronary artery disease (Acute) Type 2 diabetes mellitus (Acute) Surgical History (Updated 07/16/18 @ 09:44 by Sabrina Stokes RN) Stented coronary artery (Acute) Social History (Updated 07/16/18 @ 10:04 by Valerie Jay DO) Smoking Status: Former smoker alcohol intake: former substance use type: former substance user Social History (Updated 07/16/18 @ 10:04 by Valerie Jay DO) Smoking Status: Former smoker alcohol intake: former substance use type: former substance user Exam Narrative Exam Narrative: GENERAL: Alert and oriented x three, obese, mild distress. HEENT: Head normocephalic, atraumatic, EOMI, pupils reactive, face symmetric, moist mucous membranes NECK: Supple, full range of motion CARDIOVASCULAR: Regular rate and rhythm without murmurs, rubs or gallops. No edema bilateral lower extremities. RESPIRATORY: Breath sounds equal bilaterally, very mild wheeze bilateral upper and lower lungs no crackles, no rales. No tachypnea left ambulating. Speaks in full sentences. ABDOMEN: Soft, nontender. Normoactive bowel sounds all 4 quadrants. No guarding or rebound, rigidity, no mass : No CVA tenderness EXTREMITIES: Normal range of motion, no clubbing or edema. Neurovascularly intact NEUROLOGICAL: Cranial nerves II through XII grossly intact. Moving all extremities SKIN: Warm, dry, no petechiae, no rashes or lesions. Initial Vital Signs Initial Vital Signs: Vital Signs Temperature 98.3 F 07/16/18 09:36 Pulse Rate 87 07/16/18 09:36 Respiratory Rate 22 07/16/18 09:36 Blood Pressure 114/68 07/16/18 09:36 Pulse Oximetry 100 07/16/18 09:36 Course Orders Ordered: ED Orders 07/16/18 09:31 EKG-12 Lead Routine 07/16/18 09:40 B Type Natriuretic Peptide Stat Basic Metabolic Panel Stat Complete Blood Count AUTO DIFF Stat Partial Thromboplastin Time Stat Prothrombin Time INR Stat Troponin & CK Cardiac Panel Stat 07/16/18 09:50 XR chest 1V Stat Discontinued Medications Albuterol/Ipratropium (Duoneb) 3 ml INH NOW ONE Stop: 07/16/18 10:00 Last Admin: 07/16/18 10:06 Dose: 3 ml Aspirin (Aspirin Ec) 243 mg PO NOW ONE Stop: 07/16/18 10:00 Last Admin: 07/16/18 10:37 Dose: 243 mg Furosemide (Lasix) 60 mg IV NOW ONE Stop: 07/16/18 10:01 Last Admin: 07/16/18 10:36 Dose: 60 mg Vital Signs - 8 hr 07/16/18 11:00 07/16/18 11:30 07/16/18 12:00 Pulse Rate 70 78 91 H Respiratory Rate 14 19 Blood Pressure [Right Arm] 131/78 114/76 130/73 Pulse Oximetry 97 99 96 MDM - SOB/Dyspnea Lab Data Attestation: I reviewed the patient's lab results. Result diagrams: 07/16/18 09:40 07/16/18 09:40 Lab Results 07/16/18 07/16/18 07/16/18 Range/Units 09:40 09:40 09:40 WBC 8.8 (4.5-11.0) X10^3/uL RBC 4.46 L (4.5-5.9) X10^6/uL Hgb 12.9 L (13.5-17.5) g/dL Hct 39.0 L (41-53) % MCV 87.5 (80-100) fL MCH 28.8 (26-34) PG MCHC 32.9 (30-36) % RDW 14.9 H (11.6-14.8) % Plt Count 221 (150-400) X10^3/uL Neut % (Auto) 72.4 (50-75) % Lymph % (Auto) 19.8 L (25-40) % [place] % (Auto) 5.3 (3-14) % Eos % (Auto) 1.2 L (2-4) % Baso % (Auto) 1.3 (0-2) % Neut # (Auto) 6300 (4779-3737) /uL Lymph # (Auto) 1700 (6122-9830) /uL [place] # (Auto) 500 (0-900) /uL Eos # (Auto) 100 (0-450) /uL Baso # (Auto) 100 (0-100) /uL PT 12.2 (10.1-12.7) SECONDS INR 1.1 (0.9-1.3) APTT 33 (26.4-36.2) SECONDS Sodium 138 (137-145) mmol/L Potassium 4.0 (3.4-5.1) mmol/L Chloride 100 (98-107) mmol/L Carbon Dioxide 26 (22-32) mmol/L BUN 24 H (9-20) mg/dL Creatinine 1.10 (0.66-1.25) mg/dL Estimated GFR > 60.0 (>60) mL/min BUN/Creatinine Ratio 21.8 (6-22) Glucose 169 H (70-100) mg/dL Calcium 9.2 (8.4-10.2) mg/dL Total Creatine Kinase 169 (55-170) U/L CK-MB (CK-2) 3.02 H (<2.37) ng/mL CK-MB (CK-2) Rel Index 1.8 (1.5-5.0) % Troponin I 0.016 (0.01-0.034) ng/mL B-Natriuretic Peptide 531 H (<100) Imaging Data Chest x-ray: Radiologist's impression: [place] [id number] [place] [id number] XRay Report Signed Patient: Sid Stiles DMR#: [id number] : 1975Acct:[id number] Age/Sex: 42 / MDate of Service: 07/16/18 Loc: ED Accession Number: [id number] Procedure: XR chest 1V Ordering Provider: Valerie Jay D.O. PROCEDURE: XR CHEST 1V INDICATIONS: sob, hx of cardiomyopathy TECHNIQUE: One view of the chest was acquired. COMPARISON: [facility], CR, XR CHEST 1V, 06/05/2018, 16:13. FINDINGS: Surgical changes and devices: None. Lungs and pleura: No acute consolidation. Scattered subsegmental atelectasis and/or scarring. No pleural effusions or pneumothorax. Mediastinum: Mediastinal contours appear normal. Heart size is normal. Bones and chest wall: No suspicious bony lesions. Overlying soft tissues appear unremarkable. IMPRESSION: No acute consolidation. Scattered subsegmental atelectasis and/or scarring Dictated by: Carlos Lang M.D. on 07/16/2018 at 10:54 Approved by: Carlos Lang M.D. on 07/16/2018 at 10:55 ECG Data Attestation: I personally reviewed and interpreted this ECG as follows: Interpretation: Sinus rhythm ventricular rate 82, P are 174, QRS of 123, QTC of [address] elevation or depression appreciated. Q-waves in 1 aVL fruit well as V4 5 and 6. Patient's EKG appears similar to prior from 06/05/2018. MDM Narrative Medical decision making narrative: The patient having increasing shortness of breath, he had some mild wheeze bisects suspect this is more congestive heart failure especially with his low EF and multiple areas of akinetic movement on his recent echo from 07/04/2018. Cardiac enzymes, BNP, chest x-ray pending. Once we have these back will discuss with his primary care. Patient is on aspirin and Brilinta. Lasix 60 mg was given. Patient was also given a neb for slight wheeze. He does not have a formal diagnosis of COPD but states they were talking about testing him and patient states that he did smoke extensively for about 30 years. Patient has had about 1 L of urine out, states his shortness breath is improving. I spoke with Dr. Vasquez from Cardiology, he recommends increasing his Lasix to 40 mg in the morning continue 20 mg in the evening. Have patient follow up in the next week with the mid-level and continue his other medications. I discussed with patient he feels comfortable with this plan. He is feeling much better at this time. Discharge Plan Departure Patient Disposition: Home Clinical Impression: CHF exacerbation Discharge Date/Time: 07/16/18 12:25 Interventions: ED Discharge Assessment Last Done: 07/16/18 12:25 Instructions: DI for Heart Failure Activity Restrictions/Additional Instructions: Follow-up with your cardiology team, call Wednesday for an appointment. Increased your Lasix to 40 mg in the morning, continue with 20 mg in the evening. Continue your other home meds as prescribed. Return to the emergency department for worsening symptoms, increasing shortness of breath, new chest or arm pain, passing out, new abdominal pain, swelling of her extremities or other new or concerning symptoms. Prescriptions: New furosemide [Lasix] 20 mg tablet See Rx Instructions .ROUTE .COMPLEX Qty: 10 RF: 0 No Action metolazone 2.5 mg tablet 2.5 mg PO DAILY Qty: 14 RF: 0 lisinopril 5 mg tablet 5 mg PO DAILY Qty: 14 RF: 0 pantoprazole [Protonix] 20 mg tablet,delayed release (DR/EC) 20 mg PO DAILY Qty: 14 RF: 0 Referrals: Khadar Galloway MD [Primary Care Provider] - Shelton Galeano MD [Physician] -
[2018-07-16 10:01] LABS: BUN Creatinine Ratio 21.8 (6-22); Blood Urea Nitrogen 24 mg/dL (9-20); Calcium 9.2 mg/dL (8.4-10.2); Carbon Dioxide 26 mmol/L (22-32); Chloride 100 mmol/L (98-107); Creatine Kinase 169 U/L (55-170); Estimated Glomerular Filt Rate > 60.0 mL/min (>60); Glucose 169 mg/dL (70-100); Sodium 138 mmol/L (137-145)
[2018-07-16] MEDS: ALBUTEROL/IPRATROPIUM 3 ML AMPUL INH (10:06)
[2018-07-16 10:08] VITALS: PULSE 89; RESP 24; O2SAT 96
--- NOTE | 2018-07-16 10:08 | ED_ITS ---
HPI - SOB/Dyspnea General Chief Complaint: Shortness of Breath/Dyspnea Stated Complaint: sob, heart failure Time Seen by Provider: 07/16/18 09:32 Source: patient and old records reviewed Mode of arrival: ambulatory Limitations: no limitations History of Present Illness This is a 42-year-old male comes to the emergency department with complaint of shortness of breath. Patient states he has been increasingly short of breath over the last 2 days. He was hoping that would resolve. Patient has had cough, he had coughed up some phlegm. He states lying flat makes him very short of breath and difficult for him to get air. He states he has not noticed any swelling in his extremities but he typically does not have any. Patient has known cardiomyopathy, he has a history coronary artery disease, his stent occluded he had [place], stroke and most recent echo shows an EF 25-30% with dilated left ventricle and anterior wall, apical half of the septum, apex, apical 1/2 lateral wall and apical 1/3 of inferior wall akinetic. Patient states he saw Dr. Galeano with Cardiology and he is scheduled to have an AICD placed at the end of the month. He states that he has not had any recent food changes read anything that he should be eating, Dr. galloway his primary did stop his mental as own and potassium about 1-2 weeks ago because electrolytes abnormalities and dehydration. He has felt congested in his chest, he has had 30 yellow productive sputum. He denies any fevers. States he does sometimes have some left shoulder discomfort in the deltoid region, he states that he tends to notice it when he is walking. 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 He quit smoking 2 months ago, he does not use any alcohol or illicit drugs including cocaine but states that he used them pretty extensively in the past which likely was a major factor in developing his cardiac disease. Related Data Previous Rx's Medication Instructions Recorded lisinopril 5 mg PO DAILY #14 tab 06/05/18 metolazone 2.5 mg PO DAILY #14 tab 06/05/18 pantoprazole [Protonix] 20 mg PO DAILY #14 tab 06/05/18 furosemide [Lasix] See Rx Instructions .ROUTE 07/16/18 .COMPLEX #10 tab Allergies Allergy/AdvReac Type Severity Reaction Status Date / Time No Known Drug Allergies Allergy Verified 06/05/18 15:35 Review of Systems Review of Systems ROS Unobtainable: All systems reviewed & are unremarkable except as noted in HPI and below Constitutional Reports chills (maybe perpatient), Denies fever(s), Denies lethargy and Denies weakness ENT Ears, Nose, Mouth, and Throat: Denies nasal congestion Cardiovascular Denies chest pain, Denies chest pain at rest, Denies diaphoresis, Denies syncope, Denies edema, Denies irregular heart rhythm, Denies lightheadedness, Reports radiating jaw, neck or arm pain (left deltoid), Denies palpitations, Reports dyspnea on exertion and Reports orthopnea Respiratory Reports change in phlegm color, Reports chest congestion, Reports cough, Denies excessive phlegm production, Reports dyspnea on exertion, Denies stridor and Denies wheezing Gastrointestinal Gastrointestinal: Denies abdominal pain, Denies change in bowel habits, Denies constipation, Denies diarrhea, Denies nausea and Denies vomiting Genitourinary Denies hematuria, Denies urinary frequency and Denies urinary urgency Integumentary/Breasts Denies rash Neurologic Denies syncope and Denies weakness Endocrine Denies palpitations Allergic/Immunologic Denies wheezing [facility] Medical History (Updated 07/16/18 @ 11:59 by Valerie Jay DO) COPD (chronic obstructive pulmonary disease) (Acute) CVA (cerebral vascular accident) (Acute) Congestive heart failure (CHF) (Acute) Coronary artery disease (Acute) Type 2 diabetes mellitus (Acute) Surgical History (Updated 07/16/18 @ 09:44 by Sabrina Stokes RN) Stented coronary artery (Acute) Social History (Updated 07/16/18 @ 10:04 by Valerie Jay DO) Smoking Status: Former smoker alcohol intake: former substance use type: former substance user Social History (Updated 07/16/18 @ 10:04 by Valerie Jay DO) Smoking Status: Former smoker alcohol intake: former substance use type: former substance user Exam Narrative Exam Narrative: GENERAL: Alert and oriented x three, obese, mild distress. HEENT: Head normocephalic, atraumatic, EOMI, pupils reactive, face symmetric, moist mucous membranes NECK: Supple, full range of motion CARDIOVASCULAR: Regular rate and rhythm without murmurs, rubs or gallops. No e faisal bilateral lower extremities. RESPIRATORY: Breath sounds equal bilaterally, very mild wheeze bilateral upper and lower lungs no crackles, no rales. No tachypnea left ambulating. Speaks in full sentences. ABDOMEN: Soft, nontender. Normoactive bowel sounds all 4 quadrants. No guarding or rebound, rigidity, no mass : No CVA tenderness EXTREMITIES: Normal range of motion, no clubbing or edema. Neurovascularly intact NEUROLOGICAL: Cranial nerves II through XII grossly intact. Moving all e xtremities SKIN: Warm, dry, no petechiae, no rashes or lesions. Initial Vital Signs Initial Vital Signs: Vital Signs Temperature 98.3 F 07/16/18 09:36 Pulse Rate 87 07/16/18 09:36 Respiratory Rate 22 07/16/18 09:36 Blood Pressure 114/68 07/16/18 09:36 Pulse Oximetry 100 07/16/18 09:36 Course Orders Ordered: ED Orders 07/16/18 09:31 EKG-12 Lead Routine 07/16/18 09:40 B Type Natriuretic Peptide Stat Basic Metabolic Panel Stat Complete Blood Count AUTO DIFF Stat Partial Thromboplastin Time Stat Prothrombin Time INR Stat Troponin & CK Cardiac Panel Stat 07/16/18 09:50 XR chest 1V Stat Discontinued Medications Albuterol/Ipratropium (Duoneb) 3 ml INH NOW ONE Stop: 07/16/18 10:00 Last Admin: 07/16/18 10:06 Dose: 3 ml Aspirin (Aspirin Ec) 243 mg PO NOW ONE Stop: 07/16/18 10:00 Last Admin: 07/16/18 10:37 Dose: 243 mg Furosemide (Lasix) 60 mg IV NOW ONE Stop: 07/16/18 10:01 Last Admin: 07/16/18 10:36 Dose: 60 mg Vital Signs - 8 hr 07/16/18 11:00 07/16/18 11:30 07/16/18 12:00 Pulse Rate 70 78 91 H Respiratory Rate 14 19 Blood Pressure [Right Arm] 131/78 114/76 130/73 Pulse Oximetry 97 99 96 MDM - SOB/Dyspnea Lab Data Attestation: I reviewed the patient's lab results. Result diagrams: 07/16/18 09:40 07/16/18 09:40 Lab Results 07/16/18 07/16/18 07/16/18 Range/Units 09:40 09:40 09:40 WBC 8.8 (4.5-11.0) X10^3/uL RBC 4.46 L (4.5-5.9) X10^6/uL Hgb 12.9 L (13.5-17.5) g/dL Hct 39.0 L (41-53) % MCV 87.5 (80-100) fL MCH 28.8 (26-34) PG MCHC 32.9 (30-36) % RDW 14.9 H (11.6-14.8) % Plt Count 221 (150-400) X10^3/uL Neut % (Auto) 72.4 (50-75) % Lymph % (Auto) 19.8 L (25-40) % [place] % (Auto) 5.3 (3-14) % Eos % (Auto) 1.2 L (2-4) % Baso % (Auto) 1.3 (0-2) % Neut # (Auto) 6300 (1601-1127) /uL Lymph # (Auto) 1700 (1578-6585) /uL [place] # (Auto) 500 (0-900) /uL Eos # (Auto) 100 (0-450) /uL Baso # (Auto) 100 (0-100) /uL PT 12.2 (10.1-12.7) SECONDS INR 1.1 (0.9-1.3) APTT 33 (26.4-36.2) SECONDS Sodium 138 (137-145) mmol/L Potassium 4.0 (3.4-5.1) mmol/L Chloride 100 (98-107) mmol/L Carbon Dioxide 26 (22-32) mmol/L BUN 24 H (9-20) mg/dL Creatinine 1.10 (0.66-1.25) mg/dL Estimated GFR > 60.0 (>60) mL/min BUN/Creatinine Ratio 21.8 (6-22) Glucose 169 H (70-100) mg/dL Calcium 9.2 (8.4-10.2) mg/dL Total Creatine Kinase 169 (55-170) U/L CK-MB (CK-2) 3.02 H (<2.37) ng/mL CK-MB (CK-2) Rel Index 1.8 (1.5-5.0) % Troponin I 0.016 (0.01-0.034) ng/mL B-Natriuretic Peptide 531 H (<100) Imaging Data Chest x-ray: Radiologist's impression: [address] [address] XRay Report Signed Patient: Sid Stiles DMR#: [id number] : 1975Acct:[id number] Age/Sex: 42 / MDate of Service: 07/16/18 Loc: ED Accession Number: [id number] Procedure: XR chest 1V Ordering Provider: Valerie Jay D.O. PROCEDURE: XR CHEST 1V INDICATIONS: sob, hx of cardiomyopathy TECHNIQUE: One view of the chest was acquired. COMPARISON: [facility], CR, XR CHEST 1V, 06/05/2018, 16:13. FINDINGS: Surgical changes and devices: None. Lungs and pleura: No acute consolidation. Scattered subsegmental atelectasis and/or scarring. No pleural effusions or pneumothorax. Mediastinum: Mediastinal contours appear normal. Heart size is normal. Bones and chest wall: No suspicious bony lesions. Overlying soft tissues appear unremarkable. IMPRESSION: No acute consolidation. Scattered subsegmental atelectasis and/or scarring Dictated by: Carlos Lang M.D. on 07/16/2018 at 10:54 Approved by: Carlos Lang M.D. on 07/16/2018 at 10:55 ECG Data Attestation: I personally reviewed and interpreted this ECG as follows: Interpretation: Sinus rhythm ventricular rate 82, P are 174, QRS of 123, QTC of [address] elevation or depression appreciated. Q-waves in 1 aVL fruit well as V4 5 and 6. Patient's EKG appears similar to prior from 06/05/2018. MDM Narrative Medical decision making narrative: The patient having increasing shortness of breath, he had some mild wheeze bisects suspect this is more congestive heart failure especially with his low EF and multiple areas of akinetic movement on his recent echo from 07/04/2018. Cardiac enzymes, BNP, chest x-ray pending. Once we have these back will discuss with his primary care. Patient is on aspirin and Brilinta. Lasix 60 mg was given. Patient was also given a neb for slight wheeze. He does not have a formal diagnosis of COPD but states they were talking about testing him and patient states that he did smoke extensively for about 30 years. Patient has had about 1 L of urine out, states his shortness breath is improving. I spoke with Dr. Vasquez from Cardiology, he recommends increasing his Lasix to 40 mg in the morning continue 20 mg in the evening. Have patient follow up in the next week with the mid-level and continue his other medications. I discussed with patient he feels comfortable with this plan. He is feeling much better at this time. Discharge Plan Departure Patient Disposition: Home Clinical Impression: CHF exacerbation Discharge Date/Time: 07/16/18 12:25 Interventions: ED Discharge Assessment Last Done: 07/16/18 12:25 Instructions: DI for Heart Failure Activity Restrictions/Additional Instructions: Follow-up with your cardiology team, call Wednesday for an appointment. Increased your Lasix to 40 mg in the morning, continue with 20 mg in the evening. Continue your other home meds as prescribed. Return to the emergency department for worsening symptoms, increasing shortness of breath, new chest or arm pain, passing out, new abdominal pain, swelling of her extremities or other new or concerning symptoms. Prescriptions: New furosemide [Lasix] 20 mg tablet See Rx Instructions .ROUTE .COMPLEX Qty: 10 RF: 0 No Action metolazone 2.5 mg tablet 2.5 mg PO DAILY Qty: 14 RF: 0 lisinopril 5 mg tablet 5 mg PO DAILY Qty: 14 RF: 0 pantoprazole [Protonix] 20 mg tablet,delayed release (DR/EC) 20 mg PO DAILY Qty: 14 RF: 0 Referrals: Khadar Galloway MD [Primary Care Provider] - Shelton Galeano MD [Physician] -
[2018-07-16 10:09] LABS: Add Manual Diff / Slide Review NO; Basophils Absolute Auto 100 /uL (0-100); Basophils Percent Auto 1.3 % (0-2); Eosinophils Absolute Auto 100 /uL (0-450); Eosinophils Percent Auto 1.2 % (2-4); Hemoglobin 12.9 g/dL (13.5-17.5); Lymphocytes Absolute Auto 1700 /uL (1100-4500); Lymphocytes Percent Auto 19.8 % (25-40); Mean Corpuscular HGB Conc 32.9 % (30-36); Mean Corpuscular Hemoglobin 28.8 PG (26-34); Mean Corpuscular Volume 87.5 fL (80-100); Monocytes Absolute Auto 500 /uL (0-900); Monocytes Percent Auto 5.3 % (3-14); Neutrophils Absolute Auto 6300 /uL (1500-7000); Neutrophils Percent Auto 72.4 % (50-75); Platelet Count 221 X10^3/uL (150-400); Red Blood Cell Count 4.46 X10^6/uL (4.5-5.9); Red Cell Distribution Width 14.9 % (11.6-14.8); White Blood Cell Count 8.8 X10^3/uL (4.5-11.0)
[2018-07-16 10:14] LABS: Troponin I 0.016 ng/mL (0.01-0.034)
[2018-07-16 10:15] LABS: CKMB % Relative Index 1.8 % (1.5-5.0); Creatine Kinase MB 3.02 ng/mL (<2.37)
[2018-07-16 10:24] LABS: B Type Natriuretic Peptide 531 (<100)
[2018-07-16] MEDS: FUROSEMIDE 100 MG/10 ML VIAL 60 MG IV (10:36)
[2018-07-16] MEDS: ASPIRIN EC 325 MG TABLET 243 MG PO (10:37)
[2018-07-16 11:00] VITALS: BP 131/78; PULSE 70; O2SAT 97
[2018-07-16 11:30] VITALS: BP 114/76; PULSE 78; RESP 14; O2SAT 99
[2018-07-16 12:00] VITALS: BP 130/73; PULSE 91; RESP 19; O2SAT 96
== END 2018-07-16 12:25 | disposition home or self-care (01) ==
PROVIDERS: Emergency Provider Emergency Medicine; PCP Internal Medicine
DX: I50.9 Heart failure, unspecified (principal)
CPT/HCPCS: 36591; 71045; 80048; 82550; 82553; 83880; 84484; 85025; 85610; 85730; 93005; 94640; 96374; 99283; 99285; J1940

== ENCOUNTER 2018-07-30 07:44 | Inpatient (IN) | payer OTHER, MEDICAID, SELFPAY ==
[2018-07-30] VITALS (17 sets, daily range): BP systolic 104–142; BP diastolic 51–97; PULSE 70–99; RESP 16–22; TEMP 36.4–37.1; O2SAT 91–100; BMI 38.7
--- NOTE | 2018-07-30 07:56 | ED.SOB ---
HPI - SOB/Dyspnea General Chief Complaint: Upper Respiratory Symptoms Stated Complaint: SOB Time Seen by Provider: 07/30/18 07:56 Source: patient, family (mother), old records reviewed and other (Dr. Weston) Mode of arrival: ambulatory Limitations: no limitations History of Present Illness This is a 42-year-old male comes to the emergency department with complaint of shortness of breath. Patient was seen by myself on July 16 for shortness of breath and diagnosed with exacerbation of CHF. He has an extensive cardiac history, he has prior LAD stent that reoccluded. And now has cardiomyopathy with most recent EF being 25%. He is scheduled to have an AICD placed on August [address] Galeano. He is on aspirin, Brilinta, atorvastatin 40, Lasix, lisinopril and spironolactone. He also has a history significant for stroke. He has a history of substance abuse but has been clean for many years. Patient states that he took 40 mg of Lasix in the morning and 20 in the evening which was increased from his 20 and 20. He did this for about a week. He had some improvement but not to his total baseline. He then started to get a cold with some upper respiratory congestion and started having increasing shortness of breath again. He states that he has been having some orthopnea. He has been coughing he has had some white productive sputum. He has not had any fevers or chills. He denies any chest pain or pressure, no nausea no vomiting no diarrhea constipation. No swelling in his lower extremities but states he does not normally get any. He states that sometimes when he is asleep sore to stop breathing and then restart he is on this for many years. he has never had a workup for sleep apnea because he did not have insurance available. Patient is accompanied by his mother who states that he is definitely worse as well. Related Data Home Medications Medication Instructions Recorded Confirmed atorvastatin 40 mg PO DAILY 07/30/18 07/30/18 escitalopram oxalate 10 mg PO DAILY 07/30/18 07/30/18 exenatide [Byetta] 10 mcg SUBCUT BID 07/30/18 07/30/18 metformin 750 mg PO BID 07/30/18 07/30/18 metoprolol succinate 25 mg PO BEDTIME 07/30/18 07/30/18 spironolactone 25 mg PO DAILY 07/30/18 07/30/18 ticagrelor [Brilinta] 60 mg PO BID 07/30/18 07/30/18 Previous Rx's Medication Instructions Recorded lisinopril 5 mg PO DAILY #14 tab 06/05/18 pantoprazole [Protonix] 20 mg PO DAILY #14 tab 06/05/18 furosemide [Lasix] See Rx Instructions .ROUTE 07/16/18 .COMPLEX #10 tab Allergies Allergy/AdvReac Type Severity Reaction Status Date / Time No Known Drug Allergies Allergy Verified 07/30/18 07:57 Review of Systems Review of Systems ROS Unobtainable: All systems reviewed & are unremarkable except as noted in HPI and below Constitutional Denies chills, Denies fever(s) and Denies weakness ENT Ears, Nose, Mouth, and Throat: Reports nasal congestion Cardiovascular Denies chest pain, Denies diaphoresis, Denies syncope, Denies edema, Denies irregular heart rhythm, Denies leg edema, Denies lightheadedness, Denies palpitations, Reports dyspnea, Reports dyspnea on exertion and Reports orthopnea Respiratory Denies change in phlegm color, Denies chest congestion, Reports cough, Denies hemoptysis, Reports excessive phlegm production (white phlegm), Reports dyspnea, Reports dyspnea on exertion and Reports wheezing (mother noted, not patient) Gastrointestinal Gastrointestinal: Denies abdominal pain, Denies change in bowel habits, Denies diarrhea, Denies nausea and Denies vomiting Genitourinary Denies difficulty urinating Neurologic Denies syncope and Denies weakness Endocrine Denies palpitations Allergic/Immunologic Reports wheezing (mother noted, not patient) [facility] Medical History (Updated 07/30/18 @ 15:31 by Emmie Byrnes RN) Anxiety (Acute) Bipolar 1 disorder (Acute) Coronary stent occlusion (Acute) H/O ETOH abuse (Acute) History of drug abuse (Acute) COPD (chronic obstructive pulmonary disease) (Acute) CVA (cerebral vascular accident) (Chronic) Congestive heart failure (CHF) (Chronic) Coronary artery disease (Chronic) Type 2 diabetes mellitus (Chronic) Surgical History Stented coronary artery (Chronic) Family History (Updated 07/30/18 @ 13:53 by Faviola Mena MD) Mother Hypertension Father Alcoholism Social History household members: family Smoking Status: Former smoker alcohol intake: former substance use type: former substance user Social History household members: family Smoking Status: Former smoker alcohol intake: former substance use type: former substance user Exam Narrative Exam Narrative: GENERAL: Alert and oriented x three, well-nourished male in [id number] distress. HEENT: Head normocephalic, atraumatic, EOMI, pupils reactive, face symmetric, moist mucous membranes NECK: Supple, full range of motion CARDIOVASCULAR: Regular rate and rhythm without murmurs, rubs or gallops. Patient does not have any murmur. No JVD is noted. RESPIRATORY: Breath sounds equal bilaterally, no wheezes rales or rhonchi. Patient has tachypnea, no accessory muscle use. Patient has a dry cough on exam. ABDOMEN: Soft, nontender. Normoactive bowel sounds all 4 quadrants. No guarding or rebound, rigidity, no mass : No CVA tenderness EXTREMITIES: Normal range of motion, no clubbing or edema. Neurovascularly intact NEUROLOGICAL: Cranial nerves II through XII grossly intact. Moving all extremities SKIN: Warm, dry, no petechiae, no rashes or lesions. Initial Vital Signs Initial Vital Signs: Vital Signs Temperature 98.3 F 07/30/18 07:46 Pulse Rate 96 H 07/30/18 07:46 Respiratory Rate 20 07/30/18 07:46 Blood Pressure 126/92 H 07/30/18 07:46 Pulse Oximetry 98 07/30/18 07:46 Course Orders Ordered: ED Orders 07/30/18 13:30 MRSA PCR Urgent Urinalysis Sreen (Dip Only) Urgent 07/30/18 13:38 Education, smoking cessation ONGOING 07/30/18 14:15 D Dimer Urgent 07/31/18 Lipid Panel Routine 07/31/18 05:00 B Type Natriuretic Peptide Routine Complete Blood Count AUTO DIFF Routine Comprehensive Metabolic Panel Routine Troponin I Routine Hydrocodone Bitart/Acetaminophen ([place] 5/325) 1 tab PO Q4HR PRN PRN Reason: Pain, Moderate (4-6) Albuterol/Ipratropium (Duoneb) 3 ml INH RTQ4HR PRN PRN Reason: Shortness Of Breath Atorvastatin Calcium (Lipitor) 40 mg PO DAILY COUNTS INCLUDE 234 BEDS AT THE [facility] Dextrose (D50w) 25 gm IV PRN PRN PRN Reason: Hypoglycemia Escitalopram Oxalate (Lexapro) 10 mg PO DAILY COUNTS INCLUDE 234 BEDS AT THE [facility] Furosemide (Lasix) 80 mg IV Q12H COUNTS INCLUDE 234 BEDS AT THE [facility] Last Admin: 07/30/18 14:44 Dose: 80 mg Heparin Sodium (Porcine) (Heparin) 5,000 unit SUBCUT BID COUNTS INCLUDE 234 BEDS AT THE [facility] Insulin Aspart (Novolog Flexpen) 0 unit SUBCUT ACHS COUNTS INCLUDE 234 BEDS AT THE [facility]; Protocol Last Admin: 07/30/18 16:46 Dose: Not Given Lisinopril (Zestril) 5 mg PO DAILY COUNTS INCLUDE 234 BEDS AT THE [facility] Metformin HCl (Glucophage) 750 mg PO BID COUNTS INCLUDE 234 BEDS AT THE [facility] Methylprednisolone (Solu-Medrol 125 Mg Vial) 60 mg IV Q8H COUNTS INCLUDE 234 BEDS AT THE [facility] Last Admin: 07/30/18 14:44 Dose: 60 mg Metoprolol Succinate (Toprol Xl) 25 mg PO BEDTIME COUNTS INCLUDE 234 BEDS AT THE [facility] (Exenatide [Byetta] 10 mcg SUBCUT BID DONAVAN Ticagrelor [Brilinta (]) 60 mg PO BID COUNTS INCLUDE 234 BEDS AT THE [facility] Ondansetron HCl (Zofran) 4 mg IV Q8HR PRN PRN Reason: Nausea And Vomiting Pantoprazole Sodium (Protonix) 20 mg PO DAILY COUNTS INCLUDE 234 BEDS AT THE [facility] Spironolactone (Aldactone) 25 mg PO DAILY COUNTS INCLUDE 234 BEDS AT THE [facility] Discontinued Medications Albuterol/Ipratropium (Duoneb) 3 ml INH NOW ONE Stop: 07/30/18 08:30 Last Admin: 07/30/18 08:35 Dose: 3 ml Clopidogrel Bisulfate (Plavix) 75 mg PO DAILY COUNTS INCLUDE 234 BEDS AT THE [facility] Last Admin: 07/30/18 16:33 Dose: Not Given Furosemide (Lasix) 60 mg IV NOW ONE Stop: 07/30/18 08:30 Last Admin: 07/30/18 08:52 Dose: 60 mg Vital Signs - 8 hr 07/30/18 11:30 07/30/18 12:30 07/30/18 15:45 Temperature 97.6 F 98.8 F Pulse Rate 79 89 88 Respiratory Rate 16 16 20 Blood Pressure 128/51 L 109/66 Blood Pressure [Left Arm] 116/97 H Pulse Oximetry 97 98 99 07/30/18 16:30 Temperature Pulse Rate Respiratory Rate Blood Pressure Blood Pressure [Left Arm] Pulse Oximetry 98 MDM - SOB/Dyspnea Lab Data Attestation: I reviewed the patient's lab results. Result diagrams: 07/30/18 07:54 07/30/18 07:54 Lab Results 07/30/18 07/30/18 07/30/18 Range/Units 07:54 07:54 07:54 WBC 9.9 (4.5-11.0) X10^3/uL RBC 4.71 (4.5-5.9) X10^6/uL Hgb 13.5 (13.5-17.5) g/dL Hct 41.3 (41-53) % MCV 87.6 (80-100) fL MCH 28.6 (26-34) PG MCHC 32.7 (30-36) % RDW 15.2 H (11.6-14.8) % Plt Count 233 (150-400) X10^3/uL Neut % (Auto) 77.3 H (50-75) % Lymph % (Auto) 13.5 L (25-40) % Door % (Auto) 6.5 (3-14) % Eos % (Auto) 1.4 L (2-4) % Baso % (Auto) 1.3 (0-2) % Neut # (Auto) 7700 H (6081-8894) /uL Lymph # (Auto) 1300 (4437-7202) /uL Door # (Auto) 600 (0-900) /uL Eos # (Auto) 100 (0-450) /uL Baso # (Auto) 100 (0-100) /uL PT 12.6 (10.1-12.7) SECONDS INR 1.1 (0.9-1.3) APTT 34 (26.4-36.2) SECONDS D-Dimer (<230) ng/mL Sodium (137-145) mmol/L Potassium (3.4-5.1) mmol/L Chloride (98-107) mmol/L Carbon Dioxide (22-32) mmol/L BUN (9-20) mg/dL Creatinine (0.66-1.25) mg/dL Estimated GFR (>60) mL/min BUN/Creatinine Ratio (6-22) Glucose (70-100) mg/dL Calcium (8.4-10.2) mg/dL Magnesium 1.9 (1.6-2.3) mg/dL Total Bilirubin (0.2-1.3) mg/dL AST (17-59) IU/L ALT (21-72) IU/L Alkaline Phosphatase (38-126) U/L Total Creatine Kinase 123 (55-170) U/L CK-MB (CK-2) 2.43 H (<2.37) ng/mL CK-MB (CK-2) Rel Index 2.0 (1.5-5.0) % Troponin I < 0.012 (0.01-0.034) ng/mL B-Natriuretic Peptide 504 H (<100) Total Protein (6.3-8.2) g/dL Albumin (3.5-5.0) g/dL Globulin (1.7-4.1) g/dL Albumin/Globulin Ratio (1.0-2.8) Urine Color Urine Appearance Urine pH (4.5-8.0) Ur Specific [place] (1.000-1.035) Urine Protein (Negative) Urine Glucose (UA) (Negative) g/dL Urine Ketones (NEGATIVE) Urine Occult Blood (Negative) Urine Nitrate (Negative) Urine Bilirubin (NEGATIVE) Urine Urobilinogen (0.2) E.U./dL Ur Leukocyte Esterase (NEGATIVE) Nasal Screen MRSA (PCR) (Negative) Ethyl Alcohol mg/dL Influenza A & B (PCR) (Negative) 07/30/18 07/30/18 07/30/18 Range/Units 07:54 07:54 08:56 WBC (4.5-11.0) X10^3/uL RBC (4.5-5.9) X10^6/uL Hgb (13.5-17.5) g/dL Hct (41-53) % MCV (80-100) fL MCH (26-34) PG MCHC (30-36) % RDW (11.6-14.8) % Plt Count (150-400) X10^3/uL Neut % (Auto) (50-75) % Lymph % (Auto) (25-40) % Door % (Auto) (3-14) % Eos % (Auto) (2-4) % Baso % (Auto) (0-2) % Neut # (Auto) (4551-9801) /uL Lymph # (Auto) (7835-3935) /uL Door # (Auto) (0-900) /uL Eos # (Auto) (0-450) /uL Baso # (Auto) (0-100) /uL PT (10.1-12.7) SECONDS INR (0.9-1.3) APTT (26.4-36.2) SECONDS D-Dimer (<230) ng/mL Sodium 139 (137-145) mmol/L Potassium 4.6 (3.4-5.1) mmol/L Chloride 104 (98-107) mmol/L Carbon Dioxide 23 (22-32) mmol/L BUN 19 (9-20) mg/dL Creatinine 1.00 (0.66-1.25) mg/dL Estimated GFR > 60.0 (>60) mL/min BUN/Creatinine Ratio 19.0 (6-22) Glucose 162 H (70-100) mg/dL Calcium 8.9 (8.4-10.2) mg/dL Magnesium (1.6-2.3) mg/dL Total Bilirubin 0.6 (0.2-1.3) mg/dL AST 105 H (17-59) IU/L ALT 185 H (21-72) IU/L Alkaline Phosphatase 49 (38-126) U/L Total Creatine Kinase (55-170) U/L CK-MB (CK-2) (<2.37) ng/mL CK-MB (CK-2) Rel Index (1.5-5.0) % Troponin I (0.01-0.034) ng/mL B-Natriuretic Peptide (<100) Total Protein 7.7 (6.3-8.2) g/dL Albumin 4.5 (3.5-5.0) g/dL Globulin 3.2 (1.7-4.1) g/dL Albumin/Globulin Ratio 1.4 (1.0-2.8) Urine Color Urine Appearance Urine pH (4.5-8.0) Ur Specific [place] (1.000-1.035) Urine Protein (Negative) Urine Glucose (UA) (Negative) g/dL Urine Ketones (NEGATIVE) Urine Occult Blood (Negative) Urine Nitrate (Negative) Urine Bilirubin (NEGATIVE) Urine Urobilinogen (0.2) E.U./dL Ur Leukocyte Esterase (NEGATIVE) Nasal Screen MRSA (PCR) (Negative) Ethyl Alcohol < 10 mg/dL Influenza A & B (PCR) Negative (Negative) 07/30/18 07/30/18 07/30/18 Range/Units 13:30 13:30 14:15 WBC (4.5-11.0) X10^3/uL RBC (4.5-5.9) X10^6/uL Hgb (13.5-17.5) g/dL Hct (41-53) % MCV (80-100) fL MCH (26-34) PG MCHC (30-36) % RDW (11.6-14.8) % Plt Count (150-400) X10^3/uL Neut % (Auto) (50-75) % Lymph % (Auto) (25-40) % Door % (Auto) (3-14) % Eos % (Auto) (2-4) % Baso % (Auto) (0-2) % Neut # (Auto) (9991-4836) /uL Lymph # (Auto) (7273-7661) /uL Door # (Auto) (0-900) /uL Eos # (Auto) (0-450) /uL Baso # (Auto) (0-100) /uL PT (10.1-12.7) SECONDS INR (0.9-1.3) APTT (26.4-36.2) SECONDS D-Dimer 300 H (<230) ng/mL Sodium (137-145) mmol/L Potassium (3.4-5.1) mmol/L Chloride (98-107) mmol/L Carbon Dioxide (22-32) mmol/L BUN (9-20) mg/dL Creatinine (0.66-1.25) mg/dL Estimated GFR (>60) mL/min BUN/Creatinine Ratio (6-22) Glucose (70-100) mg/dL Calcium (8.4-10.2) mg/dL Magnesium (1.6-2.3) mg/dL Total Bilirubin (0.2-1.3) mg/dL AST (17-59) IU/L ALT (21-72) IU/L Alkaline Phosphatase (38-126) U/L Total Creatine Kinase (55-170) U/L CK-MB (CK-2) (<2.37) ng/mL CK-MB (CK-2) Rel Index (1.5-5.0) % Troponin I (0.01-0.034) ng/mL B-Natriuretic Peptide (<100) Total Protein (6.3-8.2) g/dL Albumin (3.5-5.0) g/dL Globulin (1.7-4.1) g/dL Albumin/Globulin Ratio (1.0-2.8) Urine Color Yellow Urine Appearance Clear Urine pH 6.0 (4.5-8.0) Ur Specific [place] 1.015 (1.000-1.035) Urine Protein Negative (Negative) Urine Glucose (UA) Negative (Negative) g/dL Urine Ketones Negative (NEGATIVE) Urine Occult Blood Negative (Negative) Urine Nitrate Negative (Negative) Urine Bilirubin Negative (NEGATIVE) Urine Urobilinogen 0.2 (0.2) E.U./dL Ur Leukocyte Esterase Negative (NEGATIVE) Nasal Screen MRSA (PCR) Positive for mrsa H (Negative) Ethyl Alcohol mg/dL Influenza A & B (PCR) (Negative) Point of Care Testing Glucose POC 122 Imaging Data Chest x-ray: Radiologist's impression: [place] [address] XRay Report Signed Patient: Sid Stiles [facility]#: [id number] : 1975Acct:[id number] Age/Sex: 42 / MDate of Service: 07/30/18 Loc: ED Accession Number: [id number] Procedure: XR chest 1V Ordering Provider: Valerie Jay D.O. PROCEDURE: XR CHEST 1V INDICATIONS: SOB, hx CHF. TECHNIQUE: One view of the chest was acquired. COMPARISON: 07/16/18. FINDINGS: Surgical changes and devices: None. Lungs and pleura: Diffuse interstitial prominence with mild loss of vascular distinctness. Mild perihilar airway thickening. Diffuse opacities of the bilateral lung bases may represent tiny pleural effusions. No focal consolidation. No pneumothorax.. Mediastinum: Stable cardiomediastinal contours with enlargement of the cardiac silhouette. Bones and chest wall: No suspicious bony lesions. Overlying soft tissues appear unremarkable. IMPRESSION: Findings suggestive of pulmonary edema. However, infectious process not excluded if clinically appropriate. No focal consolidation. Dictated by: Epi Alaniz M.D. on 07/30/2018 at 8:44 Approved by: Epi Alaniz M.D. on 07/30/2018 at 8:46 ECG Data Attestation: I personally reviewed and interpreted this ECG as follows: Prior ECG tracings: available for review Interpretation: Sinus rhythm with ventricular rate 84 OH interval 167 QRS of 121 and a QTC of 410. Patient has Q-waves throughout. No ST elevation or depression. Patient's EKG appears similar to 07/16/2018 as well as 06/05/2018 MDM Narrative Medical decision making narrative: Patient has normal oxygenation after diuresis with 60 of Lasix. he had 1L + of urine output. His oxygen is 97% with ambulation. Patient continues to have some tachypnea. He does have a little bit of pulmonary edema on chest x-ray, his BNP is about 500 which is about where he was at last time after he has increased his Lasix although he did stop the increased dose for about a week or so. Discussed with Dr. Weston from Cardiology, we discussed possibly keeping patient is observation for some serial doses of Lasix. Continue patient's other home medications to optimize his treatment and then discharge him home possibly on a higher dose tomorrow if improved. Spoke with Dr. Mena, he accepts. Discharge Plan Departure Patient Disposition: Admitted as Observation Clinical Impression: CHF exacerbation Discharge Date/Time: 07/30/18 12:18 Referrals: Khadar Galloway MD [Primary Care Provider] - Admit Date/Time: 07/30/18 11:42 Admit Provider: Faviola Mena
--- NOTE | 2018-07-30 07:59 | DI.RAD.S_ITS ---
PROCEDURE: XR CHEST 1V INDICATIONS: SOB, hx CHF. TECHNIQUE: One view of the chest was acquired. COMPARISON: 07/16/18. FINDINGS: Surgical changes and devices: None. Lungs and pleura: Diffuse interstitial prominence with mild loss of vascular distinctness. Mild perihilar airway thickening. Diffuse opacities of the bilateral lung bases may represent tiny pleural effusions. No focal consolidation. No pneumothorax.. Mediastinum: Stable cardiomediastinal contours with enlargement of the cardiac silhouette. Bones and chest wall: No suspicious bony lesions. Overlying soft tissues appear unremarkable. IMPRESSION: Findings suggestive of pulmonary edema. However, infectious process not excluded if clinically appropriate. No focal consolidation. Dictated by: Epi Alaniz M.D. on 07/30/2018 at 8:44 Approved by: Epi Alaniz M.D. on 07/30/2018 at 8:46
[2018-07-30 08:09] LABS: Add Manual Diff / Slide Review NO; Basophils Absolute Auto 100 /uL (0-100); Basophils Percent Auto 1.3 % (0-2); Eosinophils Absolute Auto 100 /uL (0-450); Eosinophils Percent Auto 1.4 % (2-4); Hematocrit 41.3 % (41-53); Hemoglobin 13.5 g/dL (13.5-17.5); Lymphocytes Absolute Auto 1300 /uL (1100-4500); Lymphocytes Percent Auto 13.5 % (25-40); Mean Corpuscular HGB Conc 32.7 % (30-36); Mean Corpuscular Hemoglobin 28.6 PG (26-34); Mean Corpuscular Volume 87.6 fL (80-100); Monocytes Absolute Auto 600 /uL (0-900); Monocytes Percent Auto 6.5 % (3-14); Neutrophils Absolute Auto 7700 /uL (1500-7000); Neutrophils Percent Auto 77.3 % (50-75); Platelet Count 233 X10^3/uL (150-400); Red Blood Cell Count 4.71 X10^6/uL (4.5-5.9); Red Cell Distribution Width 15.2 % (11.6-14.8); White Blood Cell Count 9.9 X10^3/uL (4.5-11.0)
[2018-07-30 08:11] LABS: INR 1.1 (0.9-1.3); Prothrombin Time 12.6 SECONDS (10.1-12.7)
[2018-07-30 08:13] LABS: PTT Partial Thromboplastin Tim 34 SECONDS (26.4-36.2)
[2018-07-30 08:14] LABS: Alanine Aminotransferase 185 IU/L (21-72); Albumin 4.5 g/dL (3.5-5.0); Albumin Globulin Ratio 1.4 (1.0-2.8); Alkaline Phosphatase 49 U/L (38-126); Aspartate Aminotransferase 105 IU/L (17-59); Bilirubin Total 0.6 mg/dL (0.2-1.3); Blood Urea Nitrogen 19 mg/dL (9-20); Calcium 8.9 mg/dL (8.4-10.2); Carbon Dioxide 23 mmol/L (22-32); Chloride 104 mmol/L (98-107); Creatine Kinase 123 U/L (55-170); Estimated Glomerular Filt Rate > 60.0 mL/min (>60); Globulin 3.2 g/dL (1.7-4.1); Glucose 162 mg/dL (70-100); HEMOLYSIS 32 (0-50); Magnesium 1.9 mg/dL (1.6-2.3); Potassium 4.6 mmol/L (3.4-5.1); Sodium 139 mmol/L (137-145); Total Protein 7.7 g/dL (6.3-8.2)
[2018-07-30 08:25] LABS: Troponin I < 0.012 ng/mL (0.01-0.034)
[2018-07-30 08:30] LABS: Creatine Kinase MB 2.43 ng/mL (<2.37)
[2018-07-30] MEDS: ALBUTEROL/IPRATROPIUM 3 ML AMPUL INH (08:35)
--- NOTE | 2018-07-30 08:37 | ED_ITS ---
HPI - SOB/Dyspnea General Chief Complaint: Upper Respiratory Symptoms Stated Complaint: SOB Time Seen by Provider: 07/30/18 07:56 Source: patient, family (mother), old records reviewed and other (Dr. Weston) Mode of arrival: ambulatory Limitations: no limitations History of Present Illness This is a 42-year-old male comes to the emergency department with complaint of shortness of breath. Patient was seen by myself on July 16 for shortness of breath and diagnosed with exacerbation of CHF. He has an extensive cardiac history, he has prior LAD stent that reoccluded. And now has cardiomyopathy with most recent EF being 25%. He is scheduled to have an AICD placed on August [address] Galeano. He is on aspirin, Brilinta, atorvastatin 40, Lasix, lisinopril and spironolactone. He also has a history significant for stroke. He has a history of substance abuse but has been clean for many years. Patient states that he took 40 mg of Lasix in the morning and 20 in the evening which was increased from his 20 and 20. He did this for about a week. He had some improvement but not to his total baseline. He then started to get a cold with some upper respiratory congestion and started having increasing shortness of breath again. He states that he has been having some orthopnea. He has been coughing he has had some white productive sputum. He has not had any fevers or chills. He denies any chest pain or pressure, no nausea no vomiting no diarrhea constipation. No swelling in his lower extremities but states he does not normally get any. He states that sometimes when he is asleep sore to stop breathing and then restart he is on this for many years. he has never had a workup for sleep apnea because he did not have insurance available. Patient is accompanied by his mother who states that he is definitely worse as well. Related Data Home Medications Medication Instructions Recorded Confirmed atorvastatin 40 mg PO DAILY 07/30/18 07/30/18 escitalopram oxalate 10 mg PO DAILY 07/30/18 07/30/18 exenatide [Byetta] 10 mcg SUBCUT BID 07/30/18 07/30/18 metformin 750 mg PO BID 07/30/18 07/30/18 metoprolol succinate 25 mg PO BEDTIME 07/30/18 07/30/18 spironolactone 25 mg PO DAILY 07/30/18 07/30/18 ticagrelor [Brilinta] 60 mg PO BID 07/30/18 07/30/18 Previous Rx's Medication Instructions Recorded lisinopril 5 mg PO DAILY #14 tab 06/05/18 pantoprazole [Protonix] 20 mg PO DAILY #14 tab 06/05/18 furosemide [Lasix] See Rx Instructions .ROUTE 07/16/18 .COMPLEX #10 tab Allergies Allergy/AdvReac Type Severity Reaction Status Date / Time No Known Drug Allergies Allergy Verified 07/30/18 07:57 Review of Systems Review of Systems ROS Unobtainable: All systems reviewed & are unremarkable except as noted in HPI and below Constitutional Denies chills, Denies fever(s) and Denies weakness ENT Ears, Nose, Mouth, and Throat: Reports nasal congestion Cardiovascular Denies chest pain, Denies diaphoresis, Denies syncope, Denies edema, Denies irregular heart rhythm, Denies leg edema, Denies lightheadedness, Denies palpitations, Reports dyspnea, Reports dyspnea on exertion and Reports orthopnea Respiratory Denies change in phlegm color, Denies chest congestion, Reports cough, Denies hemoptysis, Reports excessive phlegm production (white phlegm), Reports dyspnea, Reports dyspnea on exertion and Reports wheezing (mother noted, not patient) Gastrointestinal Gastrointestinal: Denies abdominal pain, Denies change in bowel habits, Denies diarrhea, Denies nausea and Denies vomiting Genitourinary Denies difficulty urinating Neurologic Denies syncope and Denies weakness Endocrine Denies palpitations Allergic/Immunologic Reports wheezing (mother noted, not patient) [facility] Medical History (Updated 07/30/18 @ 15:31 by Emmie Byrnes RN) Anxiety (Acute) Bipolar 1 disorder (Acute) Coronary stent occlusion (Acute) H/O ETOH abuse (Acute) History of drug abuse (Acute) COPD (chronic obstructive pulmonary disease) (Acute) CVA (cerebral vascular accident) (Chronic) Congestive heart failure (CHF) (Chronic) Coronary artery disease (Chronic) Type 2 diabetes mellitus (Chronic) Surgical History Stented coronary artery (Chronic) Family History (Updated 07/30/18 @ 13:53 by Faviola Mena MD) Mother Hypertension Father Alcoholism Social History household members: family Smoking Status: Former smoker alcohol intake: former substance use type: former substance user Social History household members: family Smoking Status: Former smoker alcohol intake: former substance use type: former substance user Exam Narrative Exam Narrative: GENERAL: Alert and oriented x three, well-nourished male in [id number] distress. HEENT: Head normocephalic, atraumatic, EOMI, pupils reactive, face symmetric, moist mucous membranes NECK: Supple, full range of motion CARDIOVASCULAR: Regular rate and rhythm without murmurs, rubs or gallops. Patient does not have any murmur. No JVD is noted. RESPIRATORY: Breath sounds equal bilaterally, no wheezes rales or rhonchi. Patient has tachypnea, no accessory muscle use. Patient has a dry cough on exam. ABDOMEN: Soft, nontender. Normoactive bowel sounds all 4 quadrants. No guarding or rebound, rigidity, no mass : No CVA tenderness EXTREMITIES: Normal range of motion, no clubbing or edema. Neurovascularly intact NEUROLOGICAL: Cranial nerves II through XII grossly intact. Moving all extremities SKIN: Warm, dry, no petechiae, no rashes or lesions. Initial Vital Signs Initial Vital Signs: Vital Signs Temperature 98.3 F 07/30/18 07:46 Pulse Rate 96 H 07/30/18 07:46 Respiratory Rate 20 07/30/18 07:46 Blood Pressure 126/92 H 07/30/18 07:46 Pulse Oximetry 98 07/30/18 07:46 Course Orders Ordered: ED Orders 07/30/18 13:30 MRSA PCR Urgent Urinalysis Sreen (Dip Only) Urgent 07/30/18 13:38 Education, smoking cessation ONGOING 07/30/18 14:15 D Dimer Urgent 07/31/18 Lipid Panel Routine 07/31/18 05:00 B Type Natriuretic Peptide Routine Complete Blood Count AUTO DIFF Routine Comprehensive Metabolic Panel Routine Troponin I Routine Hydrocodone Bitart/Acetaminophen ([place] 5/325) 1 tab PO Q4HR PRN PRN Reason: Pain, Moderate (4-6) Albuterol/Ipratropium (Duoneb) 3 ml INH RTQ4HR PRN PRN Reason: Shortness Of Breath Atorvastatin Calcium (Lipitor) 40 mg PO DAILY [facility] Dextrose (D50w) 25 gm IV PRN PRN PRN Reason: Hypoglycemia Escitalopram Oxalate (Lexapro) 10 mg PO DAILY [facility] Furosemide (Lasix) 80 mg IV Q12H [facility] Last Admin: 07/30/18 14:44 Dose: 80 mg Heparin Sodium (Porcine) (Heparin) 5,000 unit SUBCUT BID [facility] Insulin Aspart (Novolog Flexpen) 0 unit SUBCUT ACHS [facility]; Protocol Last Admin: 07/30/18 16:46 Dose: Not Given Lisinopril (Zestril) 5 mg PO DAILY [facility] Metformin HCl (Glucophage) 750 mg PO BID [facility] Methylprednisolone (Solu-Medrol 125 Mg Vial) 60 mg IV Q8H [facility] Last Admin: 07/30/18 14:44 Dose: 60 mg Metoprolol Succinate (Toprol Xl) 25 mg PO BEDTIME [facility] (Exenatide [Byetta] 10 mcg SUBCUT BID [facility] Ticagrelor [Brilinta (]) 60 mg PO BID [facility] Ondansetron HCl (Zofran) 4 mg IV Q8HR PRN PRN Reason: Nausea And Vomiting Pantoprazole Sodium (Protonix) 20 mg PO DAILY [facility] Spironolactone (Aldactone) 25 mg PO DAILY [facility] Discontinued Medications Albuterol/Ipratropium (Duoneb) 3 ml INH NOW ONE Stop: 07/30/18 08:30 Last Admin: 07/30/18 08:35 Dose: 3 ml Clopidogrel Bisulfate (Plavix) 75 mg PO DAILY [facility] Last Admin: 07/30/18 16:33 Dose: Not Given Furosemide (Lasix) 60 mg IV NOW ONE Stop: 07/30/18 08:30 Last Admin: 07/30/18 08:52 Dose: 60 mg Vital Signs - 8 hr 07/30/18 11:30 07/30/18 12:30 07/30/18 15:45 Temperature 97.6 F 98.8 F Pulse Rate 79 89 88 Respiratory Rate 16 16 20 Blood Pressure 128/51 L 109/66 Blood Pressure [Left Arm] 116/97 H Pulse Oximetry 97 98 99 07/30/18 16:30 Temperature Pulse Rate Respiratory Rate Blood Pressure Blood Pressure [Left Arm] Pulse Oximetry 98 MDM - SOB/Dyspnea Lab Data Attestation: I reviewed the patient's lab results. Result diagrams: 07/30/18 07:54 07/30/18 07:54 Lab Results 07/30/18 07/30/18 07/30/18 Range/Units 07:54 07:54 07:54 WBC 9.9 (4.5-11.0) X10^3/uL RBC 4.71 (4.5-5.9) X10^6/uL Hgb 13.5 (13.5-17.5) g/dL Hct 41.3 (41-53) % MCV 87.6 (80-100) fL MCH 28.6 (26-34) PG MCHC 32.7 (30-36) % RDW 15.2 H (11.6-14.8) % Plt Count 233 (150-400) X10^3/uL Neut % (Auto) 77.3 H (50-75) % Lymph % (Auto) 13.5 L (25-40) % [place] % (Auto) 6.5 (3-14) % Eos % (Auto) 1.4 L (2-4) % Baso % (Auto) 1.3 (0-2) % Neut # (Auto) 7700 H (0689-2799) /uL Lymph # (Auto) 1300 (0229-6169) /uL [place] # (Auto) 600 (0-900) /uL Eos # (Auto) 100 (0-450) /uL Baso # (Auto) 100 (0-100) /uL PT 12.6 (10.1-12.7) SECONDS INR 1.1 (0.9-1.3) APTT 34 (26.4-36.2) SECONDS D-Dimer (<230) ng/mL Sodium (137-145) mmol/L Potassium (3.4-5.1) mmol/L Chloride (98-107) mmol/L Carbon Dioxide (22-32) mmol/L BUN (9-20) mg/dL Creatinine (0.66-1.25) mg/dL Estimated GFR (>60) mL/min BUN/Creatinine Ratio (6-22) Glucose (70-100) mg/dL Calcium (8.4-10.2) mg/dL Magnesium 1.9 (1.6-2.3) mg/dL Total Bilirubin (0.2-1.3) mg/dL AST (17-59) IU/L ALT (21-72) IU/L Alkaline Phosphatase (38-126) U/L Total Creatine Kinase 123 (55-170) U/L CK-MB (CK-2) 2.43 H (<2.37) ng/mL CK-MB (CK-2) Rel Index 2.0 (1.5-5.0) % Troponin I < 0.012 (0.01-0.034) ng/mL B-Natriuretic Peptide 504 H (<100) Total Protein (6.3-8.2) g/dL Albumin (3.5-5.0) g/dL Globulin (1.7-4.1) g/dL Albumin/Globulin Ratio (1.0-2.8) Urine Color Urine Appearance Urine pH (4.5-8.0) Ur Specific [place] (1.000-1.035) Urine Protein (Negative) Urine Glucose (UA) (Negative) g/dL Urine Ketones (NEGATIVE) Urine Occult Blood (Negative) Urine Nitrate (Negative) Urine Bilirubin (NEGATIVE) Urine Urobilinogen (0.2) E.U./dL Ur Leukocyte Esterase (NEGATIVE) Nasal Screen MRSA (PCR) (Negative) Ethyl Alcohol mg/dL Influenza A & B (PCR) (Negative) 07/30/18 07/30/18 07/30/18 Range/Units 07:54 07:54 08:56 WBC (4.5-11.0) X10^3/uL RBC (4.5-5.9) X10^6/uL Hgb (13.5-17.5) g/dL Hct (41-53) % MCV (80-100) fL MCH (26-34) PG MCHC (30-36) % RDW (11.6-14.8) % Plt Count (150-400) X10^3/uL Neut % (Auto) (50-75) % Lymph % (Auto) (25-40) % [place] % (Auto) (3-14) % Eos % (Auto) (2-4) % Baso % (Auto) (0-2) % Neut # (Auto) (7576-1099) /uL Lymph # (Auto) (3344-9687) /uL [place] # (Auto) (0-900) /uL Eos # (Auto) (0-450) /uL Baso # (Auto) (0-100) /uL PT (10.1-12.7) SECONDS INR (0.9-1.3) APTT (26.4-36.2) SECONDS D-Dimer (<230) ng/mL Sodium 139 (137-145) mmol/L Potassium 4.6 (3.4-5.1) mmol/L Chloride 104 (98-107) mmol/L Carbon Dioxide 23 (22-32) mmol/L BUN 19 (9-20) mg/dL Creatinine 1.00 (0.66-1.25) mg/dL Estimated GFR > 60.0 (>60) mL/min BUN/Creatinine Ratio 19.0 (6-22) Glucose 162 H (70-100) mg/dL Calcium 8.9 (8.4-10.2) mg/dL Magnesium (1.6-2.3) mg/dL Total Bilirubin 0.6 (0.2-1.3) mg/dL AST 105 H (17-59) IU/L ALT 185 H (21-72) IU/L Alkaline Phosphatase 49 (38-126) U/L Total Creatine Kinase (55-170) U/L CK-MB (CK-2) (<2.37) ng/mL CK-MB (CK-2) Rel Index (1.5-5.0) % Troponin I (0.01-0.034) ng/mL B-Natriuretic Peptide (<100) Total Protein 7.7 (6.3-8.2) g/dL Albumin 4.5 (3.5-5.0) g/dL Globulin 3.2 (1.7-4.1) g/dL Albumin/Globulin Ratio 1.4 (1.0-2.8) Urine Color Urine Appearance Urine pH (4.5-8.0) Ur Specific [place] (1.000-1.035) Urine Protein (Negative) Urine Glucose (UA) (Negative) g/dL Urine Ketones (NEGATIVE) Urine Occult Blood (Negative) Urine Nitrate (Negative) Urine Bilirubin (NEGATIVE) Urine Urobilinogen (0.2) E.U./dL Ur Leukocyte Esterase (NEGATIVE) Nasal Screen MRSA (PCR) (Negative) Ethyl Alcohol < 10 mg/dL Influenza A & B (PCR) Negative (Negative) 07/30/18 07/30/18 07/30/18 Range/Units 13:30 13:30 14:15 WBC (4.5-11.0) X10^3/uL RBC (4.5-5.9) X10^6/uL Hgb (13.5-17.5) g/dL Hct (41-53) % MCV (80-100) fL MCH (26-34) PG MCHC (30-36) % RDW (11.6-14.8) % Plt Count (150-400) X10^3/uL Neut % (Auto) (50-75) % Lymph % (Auto) (25-40) % [place] % (Auto) (3-14) % Eos % (Auto) (2-4) % Baso % (Auto) (0-2) % Neut # (Auto) (3254-9049) /uL Lymph # (Auto) (3695-3547) /uL [place] # (Auto) (0-900) /uL Eos # (Auto) (0-450) /uL Baso # (Auto) (0-100) /uL PT (10.1-12.7) SECONDS INR (0.9-1.3) APTT (26.4-36.2) SECONDS D-Dimer 300 H (<230) ng/mL Sodium (137-145) mmol/L Potassium (3.4-5.1) mmol/L Chloride (98-107) mmol/L Carbon Dioxide (22-32) mmol/L BUN (9-20) mg/dL Creatinine (0.66-1.25) mg/dL Estimated GFR (>60) mL/min BUN/Creatinine Ratio (6-22) Glucose (70-100) mg/dL Calcium (8.4-10.2) mg/dL Magnesium (1.6-2.3) mg/dL Total Bilirubin (0.2-1.3) mg/dL AST (17-59) IU/L ALT (21-72) IU/L Alkaline Phosphatase (38-126) U/L Total Creatine Kinase (55-170) U/L CK-MB (CK-2) (<2.37) ng/mL CK-MB (CK-2) Rel Index (1.5-5.0) % Troponin I (0.01-0.034) ng/mL B-Natriuretic Peptide (<100) Total Protein (6.3-8.2) g/dL Albumin (3.5-5.0) g/dL Globulin (1.7-4.1) g/dL Albumin/Globulin Ratio (1.0-2.8) Urine Color Yellow Urine Appearance Clear Urine pH 6.0 (4.5-8.0) Ur Specific [place] 1.015 (1.000-1.035) Urine Protein Negative (Negative) Urine Glucose (UA) Negative (Negative) g/dL Urine Ketones Negative (NEGATIVE) Urine Occult Blood Negative (Negative) Urine Nitrate Negative (Negative) Urine Bilirubin Negative (NEGATIVE) Urine Urobilinogen 0.2 (0.2) E.U./dL Ur Leukocyte Esterase Negative (NEGATIVE) Nasal Screen MRSA (PCR) Positive for mrsa H (Negative) Ethyl Alcohol mg/dL Influenza A & B (PCR) (Negative) Point of Care Testing Glucose POC 122 Imaging Data Chest x-ray: Radiologist's impression: [place] [address] XRay Report Signed Patient: Sid Stiles [facility]#: [id number] : 1975Acct:[id number] Age/Sex: 42 / MDate of Service: 07/30/18 Loc: ED Accession Number: [id number] Procedure: XR chest 1V Ordering Provider: Valerie Jay D.O. PROCEDURE: XR CHEST 1V INDICATIONS: SOB, hx CHF. TECHNIQUE: One view of the chest was acquired. COMPARISON: 07/16/18. FINDINGS: Surgical changes and devices: None. Lungs and pleura: Diffuse interstitial prominence with mild loss of vascular distinctness. Mild perihilar airway thickening. Diffuse opacities of the bilateral lung bases may represent tiny pleural effusions. No focal consolidation. No pneumothorax.. Mediastinum: Stable cardiomediastinal contours with enlargement of the cardiac silhouette. Bones and chest wall: No suspicious bony lesions. Overlying soft tissues appear unremarkable. IMPRESSION: Findings suggestive of pulmonary edema. However, infectious process not excluded if clinically appropriate. No focal consolidation. Dictated by: Epi Alaniz M.D. on 07/30/2018 at 8:44 Approved by: Epi Alaniz M.D. on 07/30/2018 at 8:46 ECG Data Attestation: I personally reviewed and interpreted this ECG as follows: Prior ECG tracings: available for review Interpretation: Sinus rhythm with ventricular rate 84 VT interval 167 QRS of 121 and a QTC of 410. Patient has Q-waves throughout. No ST elevation or depression. Patient's EKG appears similar to 07/16/2018 as well as 06/05/2018 [facility] Narrative Medical decision making narrative: Patient has normal oxygenation after diuresis with 60 of Lasix. he had 1L + of urine output. His oxygen is 97% with ambulation. Patient continues to have some tachypnea. He does have a little bit of pulmonary edema on chest x-ray, his BNP is about 500 which is about where he was at last time after he has increased his Lasix although he did stop the increased dose for about a week or so. Discussed with Dr. Weston from Cardiology, we discussed possibly keeping patient is observation for some serial doses of Lasix. Continue patient's other home medications to optimize his treatment and then discharge him home possibly on a higher dose tomorrow if impr barbara. Spoke with Dr. Mena, he accepts. Discharge Plan Departure Patient Disposition: Admitted as Observation Clinical Impression: CHF exacerbation Discharge Date/Time: 07/30/18 12:18 Referrals: Khadar Galloway MD [Primary Care Provider] - Admit Date/Time: 07/30/18 11:42 Admit Provider: Faviola Mena
[2018-07-30 08:43] LABS: B Type Natriuretic Peptide 504 (<100)
[2018-07-30] MEDS: FUROSEMIDE 100 MG/10 ML VIAL 60 MG IV (08:52)
[2018-07-30 09:05] LABS: Ethanol (ETOH) < 10 mg/dL
[2018-07-30 09:25] LABS: Influenza A and B by PCR Rapid Negative (Negative)
--- NOTE | 2018-07-30 13:43 | PM.HP.1 ---
History of Present Illness Date Patient Seen: 07/30/18 Time Patient Seen: 13:43 Chief complaint: SOB Narrative: This is a 42-year-old male with a relatively recent history of ischemic cardiomyopathy. He has a 25-30% ejection fraction on his last echocardiogram done on July 04. He has chronic dyspnea which worsened along with a chronic cough in the last 2 days. He presented to the emergency department with a BNP over 500 and non hypoxic respiratory failure. He is being diuresed and will also be treated for possible COPD. Most of the history comes from his mother, Cristine Mccollum, who he lives with in his parents . He looks quite internally distracted and does have a history of bipolar disorder. She tells me that just a year or 2 ago in [place] he had significant coronary artery disease requiring stenting of 2 coronary arteries, with rapid re-occlusion and then a stroke. At 1 point he had actual cardiac arrest. He then moved to [place] to try to get better health coverage but was unsuccessful and so moved here to [place]. He has established with Dr. Galeano and will be getting an AICD at the end of this month. He is on Lasix and lisinopril along with metolazone but no beta-jesús that I can see for his heart disease. His EKG today shows Q-waves in both inferior and lateral leads, unchanged from earlier this month when he was in the emergency department once before. He has had no fever or chest pain. There has never been any edema. He has chronic dyspnea. He stopped smoking, using drugs and drinking alcohol several years ago. Patient History Medical History (Updated 07/30/18 @ 13:52 by Faviola Mena MD) Bipolar 1 disorder (Acute) Coronary stent occlusion (Acute) COPD (chronic obstructive pulmonary disease) (Acute) CVA (cerebral vascular accident) (Chronic) Congestive heart failure (CHF) (Chronic) Coronary artery disease (Chronic) Type 2 diabetes mellitus (Chronic) Surgical History Stented coronary artery (Chronic) Family History (Updated 07/30/18 @ 13:53 by Faviola Mena MD) Mother Hypertension Father Alcoholism Social History household members: family Smoking Status: Former smoker alcohol intake: former substance use type: former substance user Family & Social History Family History (Updated 07/30/18 @ 13:53 by Faviola Mena MD) Mother Hypertension Father Alcoholism Social History: household members family Prior Living Arrangements RV Safety & Behavioral: Feels Safe in Current Yes Environment Been Physically Hurt or No Threatened By a Person Suicidal Ideation Description None Tobacco & Substance use: Smoking Status Former smoker alcohol intake former alcohol intake frequency 0-2 drinks per day Substance Use Type does not use Comment: 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 He has no children. His mother is his default decision maker. He lives with her. Her name is Cristine Mccollum. Dr. Khadar rosado is his primary care physician. He has never been diagnosed with COPD. Meds Home Medications Medication Instructions Recorded Confirmed Type lisinopril 5 mg PO DAILY #14 tab 06/05/18 Rx metolazone 2.5 mg PO DAILY #14 tab 06/05/18 Rx pantoprazole [Protonix] 20 mg PO DAILY #14 tab 06/05/18 Rx furosemide [Lasix] See Rx Instructions .ROUTE 07/16/18 Rx .COMPLEX #10 tab Allergies Allergy/AdvReac Type Severity Reaction Status Date / Time No Known Drug Allergies Allergy Verified 07/30/18 07:57 Review of Systems Review of Systems Positive for shortness of breath, coughing and weakness. Negative for chest pain, nausea, vomiting, abdominal pain, fevers, chills, sweats, joint pain, rashes, seizures, headaches, difficulty walking, new allergies. All systems reviewed & are unremarkable except as noted in HPI and below Exam Vital Signs (past 8 hours): - 07/30/18 07:46 07/30/18 08:15 07/30/18 08:30 Temperature 98.3 F Pulse Rate 96 H 83 88 Respiratory Rate 20 19 20 Blood Pressure 126/92 H Blood Pressure [Left Arm] 129/85 117/75 Pulse Oximetry 98 99 98 07/30/18 08:40 07/30/18 09:00 07/30/18 09:30 Temperature Pulse Rate 86 99 H 85 Respiratory Rate 18 22 Blood Pressure Blood Pressure [Left Arm] 142/78 H 119/76 Pulse Oximetry 98 97 97 07/30/18 10:00 07/30/18 11:00 07/30/18 11:30 Temperature Pulse Rate 80 70 79 Respiratory Rate 20 20 16 Blood Pressure Blood Pressure [Left Arm] 104/82 125/90 116/97 H Pulse Oximetry 100 100 97 07/30/18 12:30 Temperature 97.6 F Pulse Rate 89 Respiratory Rate 16 Blood Pressure 128/51 L Blood Pressure [Left Arm] Pulse Oximetry 98 Oxygen Delivery Method Room Air Oxygen Flow Rate 0 Narrative Exam Narrative: He is alert and oriented x3. He is quite internally distracted and although he can follow exam directions he defers 100% of the questions to his mother and has a worried expression/dyspneic expression on his face all the time. He keeps his eyes closed. The head of the bed is up to help him breathe. Pupils are equally round and reactive to light and accommodation. Extraocular muscles are intact. Sclerae are pink and nonicteric. Throat looks normal. New lymph nodes are felt head, neck, supraclavicular area. JVD is less than 6 cm. No carotid bruits are heard. Heart is regular rate and rhythm without murmur. Lungs have mild wheezes bilaterally. Abdomen is soft, bowel sounds positive, nontender, obese, no organomegaly. Extremities have no ankle edema. Skin there are large tattoos on his lower legs. There is no rash or jaundice. Cranial nerves 2-12 tested intact. there is no tremor. DTRs are symmetric bilaterally. Gait and balance are not tested. Objective ECG Impression: Sinus rhythm with diffuse Q-waves in multiple lateral leads and inferior leads consistent with both old inferior and old lateral MIs. No significant change from previous EKG this month and no acute ST or T-wave changes. Labs Result Diagrams: 07/30/18 07:54 07/30/18 07:54 Labs: Laboratory Results - last 24 hr 07/30/18 07/30/18 07/30/18 07:54 07:54 07:54 WBC 9.9 RBC 4.71 Hgb 13.5 Hct 41.3 MCV 87.6 MCH 28.6 MCHC 32.7 RDW 15.2 H Plt Count 233 Neut % (Auto) 77.3 H Lymph % (Auto) 13.5 L [place] % (Auto) 6.5 Eos % (Auto) 1.4 L Baso % (Auto) 1.3 Neut # (Auto) 7700 H Lymph # (Auto) 1300 [place] # (Auto) 600 Eos # (Auto) 100 Baso # (Auto) 100 PT 12.6 INR 1.1 APTT 34 Sodium Potassium Chloride Carbon Dioxide BUN Creatinine Estimated GFR BUN/Creatinine Ratio Glucose Calcium Magnesium 1.9 Total Bilirubin AST ALT Alkaline Phosphatase Total Creatine Kinase 123 CK-MB (CK-2) 2.43 H CK-MB (CK-2) Rel Index 2.0 Troponin I < 0.012 B-Natriuretic Peptide 504 H Total Protein Albumin Globulin Albumin/Globulin Ratio Ethyl Alcohol Influenza A & B (PCR) 07/30/18 07/30/18 07/30/18 07:54 07:54 08:56 WBC RBC Hgb Hct MCV MCH MCHC RDW Plt Count Neut % (Auto) Lymph % (Auto) [place] % (Auto) Eos % (Auto) Baso % (Auto) Neut # (Auto) Lymph # (Auto) [place] # (Auto) Eos # (Auto) Baso # (Auto) PT INR APTT Sodium 139 Potassium 4.6 Chloride 104 Carbon Dioxide 23 BUN 19 Creatinine 1.00 Estimated GFR > 60.0 BUN/Creatinine Ratio 19.0 Glucose 162 H Calcium 8.9 Magnesium Total Bilirubin 0.6 AST 105 H ALT 185 H Alkaline Phosphatase 49 Total Creatine Kinase CK-MB (CK-2) CK-MB (CK-2) Rel Index Troponin I B-Natriuretic Peptide Total Protein 7.7 Albumin 4.5 Globulin 3.2 Albumin/Globulin Ratio 1.4 Ethyl Alcohol < 10 Influenza A & B (PCR) Negative Assessment & Plan Assessment & Plan narrative: Congestive Heart Failure, chronic, systolic -Ischemic Cardiomyopathy with ejection fraction of 25-30% -Chronic Dyspnea - normal CT angiogram of chest in May -Pending AICD placement -begin Lasix 80 mg IV q.12 hours -follow electrolytes and BNP -consider adding beta-jesús. Continue lisinopril. -continue Brilinta when it can be obtained, initiate Plavix for now. -treat for probable COPD with IV Solu-Medrol and DuoNeb. -check D-dimer Diabetes Mellitus Type 2 -follow blood sugars and treat with correctional short-acting insulin scale for now. Bipolar Disorder -not currently treated. Appears stable. Quality VTE Deep Vein Thrombosis/Pulmonary Embolism Present on Admission: No
[2018-07-30 14:36] LABS: D Dimer 300 ng/mL (<230)
[2018-07-30] MEDS: FUROSEMIDE 100 MG/10 ML VIAL 80 MG IV (14:44)
[2018-07-30] MEDS: methylPREDNISolone 125 MG/2 ML VIAL 60 MG IV ×2 (14:44→20:55)
--- NOTE | 2018-07-30 15:33 | PC.NURSE ---
pt feeling SOB at rest. dry frequent cough. lungs diminished. SOB with ambulation to bathroom. med rx done. Dr. Mena notified that pt's mom can bring in Bysharron and Leeannea.
[2018-07-30 15:40] LABS: Appearance Urine UA CLEAR; Bilirubin Urine UA NEGATIVE (NEGATIVE); Color Urine UA YELLOW; Glucose Urine UA NEGATIVE (Negative); Ketones Urine UA NEGATIVE (NEGATIVE); Leukocyte Esterase Urine UA NEGATIVE (NEGATIVE); Nitrite Urine UA NEGATIVE (Negative); Occult Blood Urine UA NEGATIVE (Negative); Protein Urine UA NEGATIVE (Negative); Specific Gravity Urine UA 1.015 (1.000-1.035); Urobilinogen Urine UA 0.2 E.U./dL (0.2)
--- NOTE | 2018-07-30 18:43 | PC.NURSE ---
Addendum entered by Kim Rain R.N. 07/30/18 22:21: 2220 - Reports feeling all sweaty. States I have been hot all day. Cold wash cloth and fan provided. Resp. swab collected. Cough RX given. Original Note: Addendum entered by Kim Rain R.N. 07/30/18 21:56: 2100 - Pt with persistent cough. Reports having a cold for the last week. PRETZEL TWISTER, Hadley, notified of pt cough. Orders obtained. Pt BG 199, covered with 1 unit SS novolog in addition to pt home medications. Pt reports discomfort and SOB primarily with coughing jag. Monitor. Original Note: 1839 - Dr. Mena in to follow up on pt status. Reviewed productive cough, and adequate diuresis following lasix administration. No new orders. Pt sitting up in room. Walks independently to the bathroom, void per urinal. Reinforced safety and call light use. Educated to Contact precautions for MRSA in nares. Pt reports hx of MRSA skin infections. Pt with multiple small scabbed areas to all extremities. Reports hx of picking at skin r/t anxiety. 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 Pt verbalized understanding.
[2018-07-30] MEDS: METOPROLOL ER 25 MG TABLET PO (20:53)
[2018-07-30] MEDS: TICAGRELOR 60 EACH PO (20:53)
[2018-07-30] MEDS: METFORMIN HCL 500 MG TABLET 750 MG PO (20:54)
[2018-07-30] MEDS: HEPARIN 5,000 UNIT/ML VIAL 5000 UNIT SUBCUT (20:55)
[2018-07-30] MEDS: INSULIN ASPART 100 UNIT/ML INSULN PEN SUBCUT (20:56)
[2018-07-30] MEDS: EXENATIDE 10 EACH SUBCUT (20:57)
[2018-07-30] MEDS: BENZONATATE 100 MG CAPSULE PO (22:19)
[2018-07-30] MEDS: BENZOCAINE/MENTHOL 1 LOZ PKT 1 EACH PO (22:19)
[2018-07-30 23:45] LABS: Adenovirus Not Detected (Not Detect); Coronavirus 229E Not Detected (Not Detect); Coronavirus HKU1 Not Detected (Not Detect); Coronavirus NL 63 Not Detected (Not Detect); Coronavirus OC43 Not Detected (Not Detect)
[2018-07-30 23:46] LABS: Bordetella pertussis Not Detected (Not Detect); Chlamydophila pneumoniae Not Detected (Not Detect); Human Metapneumovirus Not Detected (Not Detect); Human Rhinovirus/Enterovirus Detected (Not Detect); Influenza A Not Detected (Not Detect); Influenza B Not Detected (Not Detect); Mycoplasma pneumoniae Not Detected (Not Detect); Parainfluenza Virus 1 Not Detected (Not Detect); Parainfluenza Virus 2 Not Detected (Not Detect); Parainfluenza Virus 3 Not Detected (Not Detect); Parainfluenza Virus 4 Not Detected (Not Detect); Respiratory Syncytial Virus Not Detected (Not Detect)
[2018-07-31] VITALS (11 sets, daily range): BP systolic 101–113; BP diastolic 7–77; PULSE 73–175; RESP 16–25; TEMP 36.2–36.6; O2SAT 93–98
[2018-07-31] MEDS: FUROSEMIDE 100 MG/10 ML VIAL 80 MG IV ×3 (01:58→20:05)
[2018-07-31 05:07] LABS: Add Manual Diff / Slide Review NO; Basophils Absolute Auto 0 /uL (0-100); Basophils Percent Auto 0.2 % (0-2); Eosinophils Absolute Auto 0 /uL (0-450); Hematocrit 41.8 % (41-53); Hemoglobin 13.6 g/dL (13.5-17.5); Lymphocytes Absolute Auto 600 /uL (1100-4500); Lymphocytes Percent Auto 7.3 % (25-40); Mean Corpuscular HGB Conc 32.5 % (30-36); Mean Corpuscular Hemoglobin 28.2 PG (26-34); Monocytes Absolute Auto 100 /uL (0-900); Monocytes Percent Auto 1.4 % (3-14); Neutrophils Absolute Auto 8000 /uL (1500-7000); Neutrophils Percent Auto 91.1 % (50-75); Platelet Count 239 X10^3/uL (150-400); Red Cell Distribution Width 15.2 % (11.6-14.8); White Blood Cell Count 8.7 X10^3/uL (4.5-11.0)
[2018-07-31 05:11] LABS: Alanine Aminotransferase 151 IU/L (21-72); Albumin 4.7 g/dL (3.5-5.0); Albumin Globulin Ratio 1.5 (1.0-2.8); Alkaline Phosphatase 41 U/L (38-126); Aspartate Aminotransferase 47 IU/L (17-59); Bilirubin Total 0.6 mg/dL (0.2-1.3); Blood Urea Nitrogen 21 mg/dL (9-20); Calcium 9.1 mg/dL (8.4-10.2); Carbon Dioxide 25 mmol/L (22-32); Chloride 102 mmol/L (98-107); Estimated Glomerular Filt Rate > 60.0 mL/min (>60); Globulin 3.1 g/dL (1.7-4.1); Glucose 214 mg/dL (70-100); HEMOLYSIS < 15 (0-50); Potassium 4.2 mmol/L (3.4-5.1); Sodium 140 mmol/L (137-145); Total Protein 7.8 g/dL (6.3-8.2)
[2018-07-31 05:16] LABS: Cholesterol 162 mg/dL (140-199); HDL Cholesterol 32 mg/dL (40-60); LDL Cholesterol Calculated 111 mg/dL (<100); Triglycerides 94 mg/dL (35-150)
[2018-07-31 05:23] LABS: Troponin I < 0.012 ng/mL (0.01-0.034)
[2018-07-31 05:34] LABS: B Type Natriuretic Peptide 1040 (<100)
[2018-07-31] MEDS: methylPREDNISolone 125 MG/2 ML VIAL 60 MG IV (06:05)
[2018-07-31] MEDS: TICAGRELOR 60 EACH PO ×2 (08:19→21:13)
[2018-07-31] MEDS: PANTOPRAZOLE 20 MG TABLET PO (08:21)
[2018-07-31] MEDS: BENZONATATE 100 MG CAPSULE PO ×2 (08:22→14:34)
[2018-07-31] MEDS: LISINOPRIL 5 MG TABLET PO (08:22)
[2018-07-31] MEDS: ATORVASTATIN 20 MG TABLET 40 MG PO (08:22)
[2018-07-31] MEDS: ESCITALOPRAM 10 MG TABLET PO (08:23)
[2018-07-31] MEDS: METFORMIN HCL 500 MG TABLET 750 MG PO ×2 (08:23→21:14)
[2018-07-31] MEDS: EXENATIDE 10 EACH SUBCUT ×2 (08:25→21:15)
[2018-07-31] MEDS: HEPARIN 5,000 UNIT/ML VIAL 5000 UNIT SUBCUT ×2 (08:26→21:13)
[2018-07-31] MEDS: INSULIN ASPART 100 UNIT/ML INSULN PEN SUBCUT ×3 (08:26→17:34)
[2018-07-31] MEDS: SPIRONOLACTONE 25 MG TABLET PO (08:27)
[2018-07-31] MEDS: ALBUTEROL/IPRATROPIUM 3 ML AMPUL INH ×3 (08:59→21:47)
--- NOTE | 2018-07-31 09:31 | PC.NURSE ---
Am shift Pt reports significant improvement to resp status. Able to get some sleep last night, after getting some fluid off. Pt is self reporting output, indep to BR. Lungs are faint crackles to L base posterior, exp wheeze throughout. Significant improvement per Pt. 93% RA. Cough persistent Tessalon amy given. Able to make needs known. Dr Guan into see Pt and will work to d/c poss tomorrow.
--- NOTE | 2018-07-31 13:31 | P.PN_ITS ---
Subjective Date Patient Seen: 07/31/18 Interval history: Patient is 42-year-old male admitted with CHF exacerbation and COPD. He reports improvement in dyspnea and orthopnea status post IV diuresis with -4.5 L fluid balance. He still has significant cough and wheezing on exam which he endorses is chronic. No official diagnosis of COPD although was a long-time smoker. Exam Vital Signs (past 8 hours): - 07/31/18 07:00 07/31/18 08:59 07/31/18 11:00 Temperature 97.1 F L Pulse Rate 73 175 H Respiratory Rate 18 16 25 H Blood Pressure 106/68 106/7 L Pulse Oximetry 93 96 96 07/31/18 12:59 Temperature Pulse Rate 73 Respiratory Rate Blood Pressure Pulse Oximetry 96 Oxygen Delivery Method Room Air Oxygen Flow Rate 0 Narrative Exam Narrative: GENERAL: Alert cooperative male with significant cough HEENT: Head normocephalic, atraumatic. Mucous membranes moist. CHEST: Bilateral mid to end expiratory wheeze CARDIAC: Regular rate and rhythm. ABDOMEN: Nondistended, soft, nontender EXTREMITIES: no edema. NEUROLOGICAL: Alert, pleasant, no focal findings SKIN: Warm, dry, no petechiae, no rash Objective Labs Result Diagrams: 07/31/18 04:43 07/31/18 04:43 Labs: Laboratory Results - last 24 hr 07/30/18 07/30/18 07/30/18 13:30 13:30 14:15 WBC RBC Hgb Hct MCV MCH MCHC RDW Plt Count Neut % (Auto) Lymph % (Auto) [place] % (Auto) Eos % (Auto) Baso % (Auto) Neut # (Auto) Lymph # (Auto) [place] # (Auto) Eos # (Auto) Baso # (Auto) D-Dimer 300 H Sodium Potassium Chloride Carbon Dioxide BUN Creatinine Estimated GFR BUN/Creatinine Ratio Glucose Calcium Total Bilirubin AST ALT Alkaline Phosphatase Troponin I B-Natriuretic Peptide Total Protein Albumin Globulin Albumin/Globulin Ratio Triglycerides Cholesterol LDL Cholesterol, Calc HDL Cholesterol Urine Color Yellow Urine Appearance Clear Urine pH 6.0 Ur Specific [place] 1.015 Urine Protein Negative Urine Glucose (UA) Negative Urine Ketones Negative Urine Occult Blood Negative Urine Nitrate Negative Urine Bilirubin Negative Urine Urobilinogen 0.2 Ur Leukocyte Esterase Negative Nasal Screen MRSA (PCR) Positive for mrsa H Chlamy pneumoniae PCR Adenovirus (PCR) B.parapertussis DNA PCR Coronavirus OC43 (PCR) Coronavirus HKU1 (PCR) Coronavirus 229E (PCR) Coronavirus NL63 (PCR) Human Metapneumovir PCR Influenza Type A (PCR) Influenza Type B (PCR) M. pneumoniae (PCR) Parainfluenza 1 (PCR) Parainfluenza 2 (PCR) Parainfluenza 3 (PCR) Parainfluenza 4 (PCR) RSV (PCR) Entero/Rhino (PCR) 07/30/18 07/31/18 07/31/18 22:15 04:43 04:43 WBC RBC Hgb Hct MCV MCH MCHC RDW Plt Count Neut % (Auto) Lymph % (Auto) [place] % (Auto) Eos % (Auto) Baso % (Auto) Neut # (Auto) Lymph # (Auto) [place] # (Auto) Eos # (Auto) Baso # (Auto) D-Dimer Sodium 140 Potassium 4.2 Chloride 102 Carbon Dioxide 25 BUN 21 H Creatinine 1.00 Estimated GFR > 60.0 BUN/Creatinine Ratio 21.0 Glucose 214 H Calcium 9.1 Total Bilirubin 0.6 AST 47 ALT 151 H Alkaline Phosphatase 41 Troponin I B-Natriuretic Peptide Total Protein 7.8 Albumin 4.7 Globulin 3.1 Albumin/Globulin Ratio 1.5 Triglycerides 94 Cholesterol 162 LDL Cholesterol, Calc 111 H HDL Cholesterol 32 L Urine Color Urine Appearance Urine pH Ur Specific [place] Urine Protein Urine Glucose (UA) Urine Ketones Urine Occult Blood Urine Nitrate Urine Bilirubin Urine Urobilinogen Ur Leukocyte Esterase Nasal Screen MRSA (PCR) Chlamy pneumoniae PCR Not detected Adenovirus (PCR) Not detected B.parapertussis DNA PCR Not detected Coronavirus OC43 (PCR) Not detected Coronavirus HKU1 (PCR) Not detected Coronavirus 229E (PCR) Not detected Coronavirus NL63 (PCR) Not detected Human Metapneumovir PCR Not detected Influenza Type A (PCR) Not detected Influenza Type B (PCR) Not detected M. pneumoniae (PCR) Not detected Parainfluenza 1 (PCR) Not detected Parainfluenza 2 (PCR) Not detected Parainfluenza 3 (PCR) Not detected Parainfluenza 4 (PCR) Not detected RSV (PCR) Not detected Entero/Rhino (PCR) Detected H 07/31/18 07/31/18 04:43 04:43 WBC 8.7 RBC 4.80 Hgb 13.6 Hct 41.8 MCV 87.0 MCH 28.2 MCHC 32.5 RDW 15.2 H Plt Count 239 Neut % (Auto) 91.1 H Lymph % (Auto) 7.3 L [place] % (Auto) 1.4 L Eos % (Auto) 0.0 L Baso % (Auto) 0.2 Neut # (Auto) 8000 H Lymph # (Auto) 600 L [place] # (Auto) 100 Eos # (Auto) 0 Baso # (Auto) 0 D-Dimer Sodium Potassium Chloride Carbon Dioxide BUN Creatinine Estimated GFR BUN/Creatinine Ratio Glucose Calcium Total Bilirubin AST ALT Alkaline Phosphatase Troponin I < 0.012 B-Natriuretic Peptide 1040 H Total Protein Albumin Globulin Albumin/Globulin Ratio Triglycerides Cholesterol LDL Cholesterol, Calc HDL Cholesterol Urine Color Urine Appearance Urine pH Ur Specific [place] Urine Protein Urine Glucose (UA) Urine Ketones Urine Occult Blood Urine Nitrate Urine Bilirubin Urine Urobilinogen Ur Leukocyte Esterase Nasal Screen MRSA (PCR) Chlamy pneumoniae PCR Adenovirus (PCR) B.parapertussis DNA PCR Coronavirus OC43 (PCR) Coronavirus HKU1 (PCR) Coronavirus 229E (PCR) Coronavirus NL63 (PCR) Human Metapneumovir PCR Influenza Type A (PCR) Influenza Type B (PCR) M. pneumoniae (PCR) Parainfluenza 1 (PCR) Parainfluenza 2 (PCR) Parainfluenza 3 (PCR) Parainfluenza 4 (PCR) RSV (PCR) Entero/Rhino (PCR) Assessment & Plan Assessment & Plan narrative: Patient is 42-year-old male admitted with CHF exacerbation and COPD. 1. Acute on chronic systolic heart failure, improving dyspnea and orthopnea with IV diuresis -Ischemic Cardiomyopathy with ejection fraction of 25-30%, history of multiple MIs -BNP 504 on 07/30/2018, 1040 on 07/31/2018 with baseline of 531 on 07/16/2018 and 304 on 06/05/2018 -Chronic Dyspnea - normal CT angiogram of chest in May -Pending AICD placement -continue Lasix 80 mg IV q.12 hours -follow electrolytes and renal function -Continue lisinopril 5 mg daily, metoprolol succinate 25 mg HS, and spironolactone 25 mg daily per home routine. -continue Brilinta -patient was recently taken off of his low-dose metolazone for unclear reasons and furosemide dose increased on recent ER visit. Consider increase lisinopril dosing to 10 mg daily for improved after load reduction. He is on spironolactone with risk of hyperkalemia so he should have renal function and potassium checked in 1 week if lisinopril is increased. He should have close cardiology and PCP follow-up. 2. COPD, chronic, without exacerbation -patient endorses chronic cough and was told he has wheezing on his outpatient exams, without formal diagnosis of COPD, but former years of smoking -respiratory panel PCR positive for Entero/Rhino virus of unclear significance -continue DuoNeb, prednisone 60 mg twice daily x5 days -discharge home on albuterol and steroid MDI, requested RT inhaler education 3. Diabetes Mellitus Type 2 -continue metformin -follow blood sugars and treat with correctional short-acting insulin scale 4. Bipolar Disorder -on escitalopram for depression. Appears stable. Patient with improving course and likely will be able to discharge tomorrow, Wednesday. Quality VTE Deep Vein Thrombosis/Pulmonary Embolism Present on Admission: No
--- NOTE | 2018-07-31 13:44 | CM.DANOTE ---
Patient is a 42 year old male who was admitted on 07/30/18 for SOB. Pt has [facility] and [facility] for insurance and his PCP is Dr. Khadar Galloway. EMR was reviewed. Per MD, pt with a hx of bipolar dx, prior stroke, remote hx of alcohol and drug use, and likely medically stable in another day or two and then discharge home. Per RN, pt very pleasant and friendly with a significant medical hx and somewhat wild youth but who now realizes the impacts on his medical health and now interested in only living a healthy life and taking care of himself. Pt has needed to move multiple times in an attempt to seek better medical coverage and now finds himself living with his mom in [place] in an in order to afford his healthcare and living expenses and feels somewhat guilty for having to lean on his mother at this point in his life. Pt currently on MRSA precautions and interested in Cardio Pulmonary Rehab but states his insurance does not cover this cost and would be agreeable to help with attempting to coordinate this resource. Pt also scheduled for an AICD for defibrillator at the end of this month of July. [facility] is closed on the s and Wednesday may be able to help determine if pt's insurance covers the cost as outpt. Plan: SW to follow for possible help in determining if pt's insurance would cover Cardiac Rehab outpt Wednesday when they are open and likely plan of d/c home with mother when medically stable. ANVARRO Perdomo Discharge Planning/Care Management CM Discharge Assessment Start: 07/31/18 13:41 Freq: Status: Active Protocol: Document 07/31/18 13:41 BF (Rec: 07/31/18 13:44 BF [id number]) Discharge Planning Assessment Assigned Dietary Director NAVARRO Barton Advance Directives? No History Provided By Patient Medical Record Has Patient been admitted in last 30 No days? Prior Living Arrangements RV Household Members family Type of transporation used prior to Relies on Others admit Independent with ADL's Yes Is patient alert and oriented? Yes Needs Assistance With Managing Medications Home Chores / Shopping Caregiver for Another No Comment Likely home when stable Barriers to Discharge No Discharge Plan Home Additional Comment Patient interested in Cardio Pulmonary Rehab but states his insurance doesn't cover Review Status In Process Please Provide Date Initial DC 07/31/18 Assessment Was Performed Next Review Type Continued Stay Review
[2018-07-31] MEDS: predniSONE 20 MG TABLET 60 MG PO (17:35)
[2018-07-31] MEDS: METOPROLOL ER 25 MG TABLET PO (21:13)
[2018-08-01 04:07] VITALS: BP 109/73; PULSE 90; RESP 18; TEMP 36.1; O2SAT 97
[2018-08-01 05:29] LABS: BUN Creatinine Ratio 27.3 (6-22); Blood Urea Nitrogen 30 mg/dL (9-20); Calcium 9.1 mg/dL (8.4-10.2); Carbon Dioxide 24 mmol/L (22-32); Chloride 100 mmol/L (98-107); Estimated Glomerular Filt Rate > 60.0 mL/min (>60); Glucose 211 mg/dL (70-100); HEMOLYSIS < 15 (0-50); Potassium 3.9 mmol/L (3.4-5.1); Sodium 137 mmol/L (137-145)
[2018-08-01 07:50] VITALS: BP 96/63; PULSE 87; RESP 16; TEMP 36.5; O2SAT 96
[2018-08-01] MEDS: FUROSEMIDE 100 MG/10 ML VIAL 80 MG IV (08:26)
[2018-08-01] MEDS: ESCITALOPRAM 10 MG TABLET PO (08:26)
[2018-08-01] MEDS: predniSONE 20 MG TABLET 60 MG PO (08:26)
[2018-08-01] MEDS: ATORVASTATIN 20 MG TABLET 40 MG PO (08:26)
[2018-08-01] MEDS: PANTOPRAZOLE 20 MG TABLET PO (08:27)
[2018-08-01] MEDS: HEPARIN 5,000 UNIT/ML VIAL 5000 UNIT SUBCUT (08:27)
[2018-08-01] MEDS: METFORMIN HCL 500 MG TABLET 750 MG PO (08:27)
[2018-08-01] MEDS: SPIRONOLACTONE 25 MG TABLET PO (08:28)
[2018-08-01] MEDS: TICAGRELOR 60 EACH PO (08:28)
[2018-08-01] MEDS: SODIUM CHLORIDE 0.9% FLUSH 10 ML IV (08:28)
[2018-08-01] MEDS: INSULIN ASPART 100 UNIT/ML INSULN PEN SUBCUT ×2 (08:29→11:35)
[2018-08-01] MEDS: EXENATIDE 10 EACH SUBCUT (08:38)
[2018-08-01 09:13] VITALS: O2SAT 97
[2018-08-01 09:30] VITALS: PULSE 92; RESP 16; O2SAT 95
[2018-08-01] MEDS: ALBUTEROL/IPRATROPIUM 3 ML AMPUL INH (09:30)
--- NOTE | 2018-08-01 10:41 | PM.DS.1 ---
History of Present Illness Date Patient Seen: 08/01/18 Chief complaint: SOB Narrative: his is a 42-year-old male with a relatively recent history of ischemic cardiomyopathy. He has a 25-30% ejection fraction on his last echocardiogram done on July 04. He has chronic dyspnea which worsened along with a chronic cough in the last 2 days. He presented to the emergency department with a BNP over 500 and non hypoxic respiratory failure. He is being diuresed and will also be treated for possible COPD. Most of the history comes from his mother, Cristine Mccollum, who he lives with in his [facility]. He looks quite internally distracted and does have a history of bipolar disorder. She tells me that just a year or 2 ago in [place] he had significant coronary artery disease requiring stenting of 2 coronary arteries, with rapid re-occlusion and then a stroke. At 1 point he had actual cardiac arrest. He then moved to [place] to try to get better health coverage but was unsuccessful and so moved here to [place]. He has established with Dr. Galeano and will be getting an AICD at the end of this month. He is on Lasix and lisinopril along with metolazone but no beta-jesús that I can see for his heart disease. His EKG today shows Q-waves in both inferior and lateral leads, unchanged from earlier this month when he was in the emergency department once before. He has had no fever or chest pain. There has never been any edema. He has chronic dyspnea. He stopped smoking, using drugs and drinking alcohol several years ago. Discharge Providers Date of admission: 07/30/18 11:42 Discharge Date: 08/01/18 Primary care physician: Khadar Galloway MD Consults: 07/31/18 08:41 Consult to Respiratory Therapy Evaluate & Treat Comment: COPD, needs MDI education, not previously on MDI Physician Instructions: Evaluate and treat Discharge provider: Altagracia Valle MD Summary Discharge Diagnosis: Acute Systolic Heart Failure<del>,</del> <del>present</del> <del>on</del> <del>admission</del> <del>Ischemic</del> <del>Cardiomyopathy,</del> <del>EF</del> <del>25%</del> COPD exacerbation, present on admission CAD, S/P 2 STENTS Type 2 Diabetes mellitus Obesity Depression Hospital Course: Patient was admitted to the hospital with acute dyspnea. He was found to have Acute on Chronic Systolic Congestive Heart Failure. The patient was diuresed with very good response. He continued to have shortness of breath and wheezing. He required some nebulizers for this as well. He has a long history of smoking and likely has COPD as well. The patient had his lisinopril titrated up and will be started on a low dose beta jesús before discharge. Patient has an appointment for an AICD placement with Dr. Galeano On 08/08/2018. He will follow up with his PCP Dr. Galloway thereafter. Patient was deemed appropriate for discharge home. Exam Vital Signs (past 8 hours): - 08/01/18 04:07 08/01/18 07:50 08/01/18 09:13 Temperature 97.0 F L 97.7 F Pulse Rate 90 87 Respiratory Rate 18 16 Blood Pressure 109/73 96/63 Pulse Oximetry 97 96 97 08/01/18 09:30 Temperature Pulse Rate 92 H Respiratory Rate 16 Blood Pressure Pulse Oximetry 95 Oxygen Delivery Method Room Air Oxygen Flow Rate 0 Narrative Exam Narrative: Pleasant male in NAD Lungs: decreased breath sounds with prolonged expiratory phase and end expiratory wheezing CV: RRR nl S1 S2 Abd: soft/ non tendern Ext: no edema Objective Labs Result Diagrams: 07/31/18 04:43 08/01/18 05:02 Labs: Laboratory Results - last 24 hr 08/01/18 05:02 Sodium 137 Potassium 3.9 Chloride 100 Carbon Dioxide 24 BUN 30 H Creatinine 1.10 Estimated GFR > 60.0 BUN/Creatinine Ratio 27.3 H Glucose 211 H Calcium 9.1 Discharge Plan Discharge Plan Discharge Problem: CHF exacerbation Patient Disposition: Home Discharge comment: f/u with Dr. Galeano as scheduled August 08, 2018 F/u with Dr. Galloway next week as well Discharge Med Rec/Prescriptions Prescriptions: New benzonatate 100 mg Capsule 100 mg PO TID PRN (Reason: Cough) 7 Days RF: 0 Combivent Respimat 20-100 mcg/actuation mist 1 puff INHALATION QID Qty: 4 RF: 0 benazepril 10 mg tablet 10 mg PO DAILY Qty: 30 RF: 0 prednisone 20 mg tablet 40 mg PO DAILY 3 Days Qty: 3 RF: 0 Continued pantoprazole [Protonix] 20 mg tablet,delayed release (DR/EC) 20 mg PO DAILY Qty: 14 RF: 0 furosemide [Lasix] 20 mg tablet See Rx Instructions .ROUTE .COMPLEX Qty: 10 RF: 0 Byetta 10 mcg/dose(250 mcg/mL) 2.4 mL Pen Injector 10 mcg SUBCUT BID RF: 0 metformin 750 mg PO BID RF: 0 atorvastatin 40 mg Tablet 40 mg PO DAILY RF: 0 spironolactone 25 mg Tablet 25 mg PO DAILY RF: 0 metoprolol succinate 25 mg Tablet Extended Release 24 Hr 25 mg PO BEDTIME RF: 0 Brilinta 60 mg Tablet 60 mg PO BID RF: 0 escitalopram oxalate 10 mg Tablet 10 mg PO DAILY RF: 0 Discontinued lisinopril 5 mg tablet 5 mg PO DAILY Qty: 14 RF: 0 Follow up/Referrals: Khadar Galloway MD [Primary Care Provider] - Provider Discharge Instructions Diet: Low-sodium and Low-cholesterol Activity: as tolerated Skin/Wound/Dressing Care Report to your healthcare provider any signs of infection, such as:: chills, fever and night sweats Discharge Data Primary Care Provider: Khadar Galloway Attending Provider: Faviola Mena Admit Date/Time: 07/30/18 11:42 Quality VTE Deep Vein Thrombosis/Pulmonary Embolism Present on Admission: No
--- NOTE | 2018-08-01 10:41 | CM.DPC ---
DCP/Continued: Reviewed chart. Spoke with RN whom reports that patient ambulating I in room. D/C date undetermined at this time. Patient reports that his PCP is Dr. Galloway at [facility]. Patient inquiring about obtaining cardiac rehab as outpatient. Instructed patient to discuss with PCP for referral. He is agreeable. Spoke with RN/Ruthann about obtaining PCP appointment prior to patient's discharge, she is in agreement. P: Home when stable. NAVARRO Trujillo
[2018-08-01 10:45] VITALS: BP 111/58; PULSE 91
--- NOTE | 2018-08-01 10:48 | P.DS_ITS ---
History of Present Illness Date Patient Seen: 08/01/18 Chief complaint: SOB Narrative: his is a 42-year-old male with a relatively recent history of ischemic cardiomyopathy. He has a 25-30% ejection fraction on his last echocardiogram done on July 04. He has chronic dyspnea which worsened along with a chronic cough in the last 2 days. He presented to the emergency department with a BNP over 500 and non hypoxic respiratory failure. He is being diuresed and will also be treated for possible COPD. Most of the history comes from his mother, Cristine Mccollum, who he lives with in his [facility]. He looks quite internally distracted and does have a history of bipolar disorder. She tells me that just a year or 2 ago in [place] he had significant coronary artery disease requiring stenting of 2 coronary arteries, with rapid re- occlusion and then a stroke. At 1 point he had actual cardiac arrest. He then moved to [place] to try to get better health coverage but was unsuccessful and so moved here to [place]. He has established with Dr. Galeano and will be getting an AICD at the end of this month. He is on Lasix and lisinopril along with metolazone but no beta-jesús that I can see for his heart disease. His EKG today shows Q-waves in both inferior and lateral leads, unchanged from earlier this month when he was in the emergency department once before. He has had no fever or chest pain. There has never been any edema. He has chronic dyspnea. He stopped smoking, using drugs and drinking alcohol several years ago. Discharge Providers Date of admission: 07/30/18 11:42 Discharge Date: 08/01/18 Primary care physician: Khadar Galloway MD Consults: 07/31/18 08:41 Consult to Respiratory Therapy Evaluate & Treat Comment: COPD, needs MDI education, not previously on MDI Physician Instructions: Evaluate and treat Discharge provider: Altagracia Valle MD Summary Discharge Diagnosis: Acute Systolic Heart Failure-,- -p-b-n-[id number]-n-t- -o-n- -r-[id number]-m-[id number]-i-o-n- -G-k-v-h-e-m--i-c- -W-q-m-q-s-n-t-u-i-p-a-t-h-y-,- -E-F- -2-5-%- COPD exacerbation, present on admission CAD, S/P 2 STENTS Type 2 Diabetes mellitus Obesity Depression Hospital Course: Patient was admitted to the hospital with acute dyspnea. He was found to have Acute on Chronic Systolic Congestive Heart Failure. The patient was diuresed with very good response. He continued to have shortness of breath and wheezing. He required some nebulizers for this as well. He has a long history of smoking and likely has COPD as well. The patient had his lisinopril titrated up and will be started on a low dose beta jesús before discharge. Patient has an appointment for an AICD placement with Dr. Galeano On 08/08/2018. He will follow up with his PCP Dr. Galloway thereafter. Patient was deemed appropriate for discharge home. Exam Vital Signs (past 8 hours): - 08/01/18 04:07 08/01/18 07:50 08/01/18 09:13 Temperature 97.0 F L 97.7 F Pulse Rate 90 87 Respiratory Rate 18 16 Blood Pressure 109/73 96/63 Pulse Oximetry 97 96 97 08/01/18 09:30 Temperature Pulse Rate 92 H Respiratory Rate 16 Blood Pressure Pulse Oximetry 95 Oxygen Delivery Method Room Air Oxygen Flow Rate 0 Narrative Exam Narrative: Pleasant male in NAD Lungs: decreased breath sounds with prolonged expiratory phase and end expiratory wheezing CV: RRR nl S1 S2 Abd: soft/ non tendern Ext: no edema Objective Labs Result Diagrams: 07/31/18 04:43 08/01/18 05:02 Labs: Laboratory Results - last 24 hr 08/01/18 05:02 Sodium 137 Potassium 3.9 Chloride 100 Carbon Dioxide 24 BUN 30 H Creatinine 1.10 Estimated GFR > 60.0 BUN/Creatinine Ratio 27.3 H Glucose 211 H Calcium 9.1 Discharge Plan Discharge Plan Discharge Problem: CHF exacerbation Patient Disposition: Home Discharge comment: f/u with Dr. Galeano as scheduled August 08, 2018 F/u with Dr. Galloway next week as well Discharge Med Rec/Prescriptions Prescriptions: New benzonatate 100 mg Capsule 100 mg PO TID PRN (Reason: Cough) 7 Days RF: 0 Combivent Respimat 20-100 mcg/actuation mist 1 puff INHALATION QID Qty: 4 RF: 0 benazepril 10 mg tablet 10 mg PO DAILY Qty: 30 RF: 0 prednisone 20 mg tablet 40 mg PO DAILY 3 Days Qty: 3 RF: 0 Continued pantoprazole [Protonix] 20 mg tablet,delayed release (DR/EC) 20 mg PO DAILY Qty: 14 RF: 0 furosemide [Lasix] 20 mg tablet See Rx Instructions .ROUTE .COMPLEX Qty: 10 RF: 0 Byetta 10 mcg/dose(250 mcg/mL) 2.4 mL Pen Injector 10 mcg SUBCUT BID RF: 0 metformin 750 mg PO BID RF: 0 atorvastatin 40 mg Tablet 40 mg PO DAILY RF: 0 spironolactone 25 mg Tablet 25 mg PO DAILY RF: 0 metoprolol succinate 25 mg Tablet Extended Release 24 Hr 25 mg PO BEDTIME RF: 0 Brilinta 60 mg Tablet 60 mg PO BID RF: 0 escitalopram oxalate 10 mg Tablet 10 mg PO DAILY RF: 0 Discontinued lisinopril 5 mg tablet 5 mg PO DAILY Qty: 14 RF: 0 Follow up/Referrals: Khadar Galloway MD [Primary Care Provider] - Provider Discharge Instructions Diet: Low-sodium and Low-cholesterol Activity: as tolerated Skin/Wound/Dressing Care Report to your healthcare provider any signs of infection, such as:: chills, fever and night sweats Discharge Data Primary Care Provider: Khadar Galloway Attending Provider: Faviola Mena Admit Date/Time: 07/30/18 11:42 Quality VTE Deep Vein Thrombosis/Pulmonary Embolism Present on Admission: No
[2018-08-01] MEDS: LISINOPRIL 5 MG TABLET PO ×2 (10:55)
--- NOTE | 2018-08-01 11:16 | PC.NURSE ---
Pt given his bottle of brinlinta,byetta pen and box of unifine pentips at discharge.
[2018-08-01 12:15] VITALS: BP 112/56
== END 2018-08-01 12:37 | disposition home or self-care (01) | DRG 194 ==
LOC: ED 11:40 → AC 11:49 → ICU 07-31 08:24 → AC 08-01 07:48
PROVIDERS: Internal Medicine; Nurse Practitioner Adult Health; Admitting Provider Family Medicine; Emergency Provider Emergency Medicine; PCP Internal Medicine; Visit Provider Family Medicine
DX: I50.23 Acute on chronic systolic (congestive) heart failure (principal); J44.1 Chronic obstructive pulmonary disease with (acute) exacerbation; F31.89 Other bipolar disorder; E11.9 Type 2 diabetes mellitus without complications; I25.10 Atherosclerotic heart disease of native coronary artery without angina pectoris; Z95.5 Presence of coronary angioplasty implant and graft; Z87.891 Personal history of nicotine dependence
CPT/HCPCS: 36415; 36591; 71045; 80048; 80053; 80061; 80320; 81003; 82550; 82553; 82962; 83735; 83880; 84484; 85025; 85379; 85610; 85730; 87400; 87633; 87797; 93005; 94640; 96374; 99283; 99285; J1644; J1940; J2930